=== PATIENT | male | born 1995 | race Caucasian/White ===

== ENCOUNTER 2017-03-17 06:46 | Emergency (ER) | payer OTHER ==
[2017-03-17] MEDS ORDERED: SODIUM CHLORIDE 0.9% 1,000 ML IV STA ×2 (06:57)
[2017-03-17] MEDS ORDERED: ONDANSETRON 4 MG/2 ML VIAL IVP STA (06:57)
[2017-03-17] MEDS ORDERED: KETOROLAC 30 MG/ML 1 ML VIAL IVP STA (07:03)
--- NOTE | 2017-03-17 07:10 | ED ---
General Adult HPI - General Chief complaint: Abdominal Pain Stated complaint: Vomiting Time Seen by Provider: 03/17/17 06:53 Source: patient, RN notes reviewed, old records reviewed Mode of arrival: wheelchair Limitations: no limitations - History of Present Illness Initial comments: 21-year-old male presents with right lower abdominal pain and right flank pain. Patient does also admit to having pain in his right testicle. Patient states this woke him from sleep. Pain is severe, constant in nature. He had 2 episodes of vomiting. Patient reports a bowel movement which was normal. No diarrhea. Denies fever or chills. - Related Data Previous Rx's Medication Instructions Recorded HYDROcodone/APAP 5-325MG [[place] 1 tab PO Q6HR PRN #12 tab 03/17/17 5-325] Ibuprofen [Motrin] 600 mg PO Q8HR PRN #24 tab 03/17/17 Ondansetron Odt [Zofran Odt] 4 mg PO Q8HR PRN #10 tab 03/17/17 Tamsulosin HCl [Flomax] 0.4 mg PO DAILY #14 cap 03/17/17 Allergies Allergy/AdvReac Type Severity Reaction Status Date / Time latex Allergy Swelling Verified 03/17/17 07:29 cats Allergy Itching Uncoded 03/17/17 06:55 Review of Systems ROS Statement: Those systems with pertinent positive or pertinent negative responses have been documented in the HPI. ROS Other: All systems not noted in ROS Statement are negative. Past Medical History Past Medical History: No Reported History Additional Past Medical History / Comment(s): migraines, abdominal pain, constipation, kidney stones History of Any Multi-Drug Resistant Organisms: None Reported Past Surgical History: No Surgical Hx Reported Past Anesthesia/Blood Transfusion Reactions: Motion Sickness Past Psychological History: No Psychological Hx Reported Smoking Status: Former smoker Past Alcohol Use History: Occasional Past Drug Use History: None Reported - Past Family History Mother Family Medical History: No Reported History General Exam Limitations: no limitations General appearance: alert, in distress Head exam: Present: atraumatic, normocephalic Eye exam: Present: normal appearance, PERRL ENT exam: Present: normal exam Neck exam: Present: normal inspection. Absent: tenderness, meningismus Respiratory exam: Present: normal lung sounds bilaterally. Absent: respiratory distress Cardiovascular Exam: Present: regular rate, normal rhythm GI/Abdominal exam: Present: soft, tenderness (Right lower and right upper quadrant.). Absent: distended exam: Present: normal inspection, testicular tenderness, other (Mild tenderness in the right testicle, normal lie, no swelling. ) Extremities exam: Present: normal inspection, normal capillary refill Back exam: Present: CVA tenderness (R) Neurological exam: Present: alert, oriented X3 Psychiatric exam: Present: normal affect, normal mood Skin exam: Present: warm, dry, intact. Absent: cyanosis, diaphoretic Course Vital Signs 03/17/17 06:52 Temperature 97.9 F Pulse Rate 73 Respiratory 20 Rate Blood Pressure 134/82 O2 Sat by Pulse 99 Oximetry - Reevaluation(s) Reevaluation #1: 03/17/17 08:16 On reevaluation, patient is feeling better. Medical Decision Making - Medical Decision Making 21-year-old male presenting with flank pain, abdominal pain radiating into his testicle. Patient does have hematuria with over [address] of the abdomen and pelvis without IV contrast is obtained and shows a 5 mm stone at the right ureteral orifice. After initial dose of pain medication and antiemetic patient is feeling better. No further episodes of vomiting while in the emergency department. Additional laboratory studies including CBC, CMP are unremarkable, normal serum creatinine, no signs of infection. Patient is given a urine strainer in the emergency department. Pain medication and antiemetics as well as Flomax. Patient will follow-up with urology. - Lab Data Result diagrams: 03/17/17 06:56 03/17/17 06:56 Lab Results 03/17/17 03/17/17 03/17/17 Range/Units 06:56 06:56 07:05 WBC 7.2 (3.8-10.6) k/uL RBC 5.24 (4.30-5.90) m/uL Hgb 15.7 (13.0-17.5) gm/dL Hct 45.1 (39.0-53.0) % MCV 86.1 (80.0-100.0) fL MCH 30.0 (25.0-35.0) pg MCHC 34.9 (31.0-37.0) g/dL RDW 12.5 (11.5-15.5) % Plt Count 263 (150-450) k/uL Neutrophils % 53 % Lymphocytes % 38 % Monocytes % 5 % Eosinophils % 1 % Basophils % 0 % Neutrophils # 3.8 (1.3-7.7) k/uL Lymphocytes # 2.8 (1.0-4.8) k/uL Monocytes # 0.4 (0-1.0) k/uL Eosinophils # 0.1 (0-0.7) k/uL Basophils # 0.0 (0-0.2) k/uL Sodium 143 (137-145) mmol/L Potassium 3.9 (3.5-5.1) mmol/L Chloride 106 (98-107) mmol/L Carbon Dioxide 21 L (22-30) mmol/L Anion Gap 16 mmol/L BUN 16 (9-20) mg/dL Creatinine 1.08 (0.66-1.25) mg/dL Est GFR (MDRD) Af Amer >60 (>60 ml/min/1.73 sqM) Est GFR (MDRD) Non-Af >60 (>60 ml/min/1.73 sqM) Glucose 103 H (74-99) mg/dL Plasma Lactic Acid [place] (0.7-2.0) mmol/L Calcium 10.2 (8.4-10.2) mg/dL Total Bilirubin 0.7 (0.2-1.3) mg/dL AST 19 (17-59) U/L ALT 28 (21-72) U/L Alkaline Phosphatase 61 (38-126) U/L Total Protein 8.0 (6.3-8.2) g/dL Albumin 5.3 H (3.5-5.0) g/dL Amylase 42 (30-110) U/L Lipase 68 (23-300) U/L Urine Color Yellow Urine Appearance Cloudy (Clear) Urine pH 5.5 (5.0-8.0) Ur Specific [place] 1.029 (1.001-1.035) Urine Protein 1+ H (Negative) Urine Glucose (UA) Negative (Negative) Urine Ketones Negative (Negative) Urine Blood Large H (Negative) Urine Nitrite Negative (Negative) Urine Bilirubin Negative (Negative) Urine Urobilinogen 2.0 (<2.0) mg/dL Ur Leukocyte Esterase Negative (Negative) Urine RBC 167 H (0-5) /hpf Urine WBC 20 H (0-5) /hpf Urine Mucus Many H (None) /hpf 03/17/17 Range/Units 07:10 WBC (3.8-10.6) k/uL RBC (4.30-5.90) m/uL Hgb (13.0-17.5) gm/dL Hct (39.0-53.0) % MCV (80.0-100.0) fL MCH (25.0-35.0) pg MCHC (31.0-37.0) g/dL RDW (11.5-15.5) % Plt Count (150-450) k/uL Neutrophils % % Lymphocytes % % Monocytes % % Eosinophils % % Basophils % % Neutrophils # (1.3-7.7) k/uL Lymphocytes # (1.0-4.8) k/uL Monocytes # (0-1.0) k/uL Eosinophils # (0-0.7) k/uL Basophils # (0-0.2) k/uL Sodium (137-145) mmol/L Potassium (3.5-5.1) mmol/L Chloride (98-107) mmol/L Carbon Dioxide (22-30) mmol/L Anion Gap mmol/L BUN (9-20) mg/dL Creatinine (0.66-1.25) mg/dL Est GFR (MDRD) Af Amer (>60 ml/min/1.73 sqM) Est GFR (MDRD) Non-Af (>60 ml/min/1.73 sqM) Glucose (74-99) mg/dL Plasma Lactic Acid [place] 2.2 H* (0.7-2.0) mmol/L Calcium (8.4-10.2) mg/dL Total Bilirubin (0.2-1.3) mg/dL AST (17-59) U/L ALT (21-72) U/L Alkaline Phosphatase (38-126) U/L Total Protein (6.3-8.2) g/dL Albumin (3.5-5.0) g/dL Amylase (30-110) U/L Lipase (23-300) U/L Urine Color Urine Appearance (Clear) Urine pH (5.0-8.0) Ur Specific [place] (1.001-1.035) Urine Protein (Negative) Urine Glucose (UA) (Negative) Urine Ketones (Negative) Urine Blood (Negative) Urine Nitrite (Negative) Urine Bilirubin (Negative) Urine Urobilinogen (<2.0) mg/dL Ur Leukocyte Esterase (Negative) Urine RBC (0-5) /hpf Urine WBC (0-5) /hpf Urine Mucus (None) /hpf Disposition Clinical Impression: Renal stone, Hydronephrosis Disposition: HOME SELF-CARE Condition: Good Instructions: Kidney Stones (ED) Additional Instructions: Return to emergency department with worsening symptoms, follow-up with urology in the next several days. Prescriptions: HYDROcodone/APAP 5-325MG [[place] 5-325] 1 tab PO Q6HR PRN #12 tab PRN Reason: Pain Ibuprofen [Motrin] 600 mg PO Q8HR PRN #24 tab PRN Reason: Pain Ondansetron Odt [Zofran Odt] 4 mg PO Q8HR PRN #10 tab PRN Reason: Vomiting Tamsulosin HCl [Flomax] 0.4 mg PO DAILY #14 cap Referrals: None,Stated [Primary Care Provider] - 1-2 days Jerry Ingram MD [STAFF PHYSICIAN] - 1-2 days
[2017-03-17 07:26] LABS: Appearance,Urine Cloudy (Clear); Bilirubin,Urine Negative (Negative); Glucose,Urine (UA) Negative (Negative); Ketones,Urine Negative (Negative); Leukocyte Esterase,Urine Negative (Negative); Mucus,Urine Many /hpf; Nitrite,Urine Negative (Negative); PH, Urine 5.5 (5.0-8.0); Particle Count 14612; Protein,Urine 1+ (Negative); RBC,Urine 167 /hpf (0-5); Specific Gravity,Urine 1.029 (1.001-1.035); UA Billing (MACRO vs. MICRO) MICRO; WBC,Urine 20 /hpf (0-5)
[2017-03-17 07:31] LABS: ALT 28 U/L (21-72); AST 19 U/L (17-59); Alkaline Phosphatase 61 U/L (38-126); Amylase 42 U/L (30-110); Anion Gap 16 mmol/L; Blood Urea Nitrogen 16 mg/dL (9-20); Calcium 10.2 mg/dL (8.4-10.2); Carbon Dioxide 21 mmol/L (22-30); Chloride 106 mmol/L (98-107); Glucose 103 mg/dL (74-99); Non-African American GFR(MDRD) >60 (>60 ml/min/1.73 sqM); Potassium 3.9 mmol/L (3.5-5.1); Sodium 143 mmol/L (137-145); Total Bilirubin 0.7 mg/dL (0.2-1.3)
[2017-03-17 07:42] LABS: Basophils % (A) 0 %; Eosinophils # (A) 0.1 k/uL (0-0.7); Eosinophils % (A) 1 %; HCT 45.1 % (39.0-53.0); HDW 2.66; HGB 15.7 gm/dL (13.0-17.5); Luc # (Auto) 0.19; Luc % (Auto) 3; Lymphocytes # (A) 2.8 k/uL (1.0-4.8); Lymphocytes % (A) 38 %; MCHC 34.9 g/dL (31.0-37.0); MCV 86.1 fL (80.0-100.0); Mean Platelet Volume 7.6; Monocytes # (A) 0.4 k/uL (0-1.0); Monocytes % (A) 5 %; Neutrophils # (A) 3.8 k/uL (1.3-7.7); Neutrophils % (A) 53 %; RBC 5.24 m/uL (4.30-5.90); RDW 12.5 % (11.5-15.5); WBC 7.2 k/uL (3.8-10.6); WBC (Perox) 7.17
--- NOTE | 2017-03-17 07:57 | CT ---
EXAMINATION TYPE: CT abdomen pelvis wo con DATE OF EXAM: 03/17/2017 COMPARISON: 07/24/2015 HISTORY: 21-year-old male right lower quadrant and Rt flank pain CT DLP: 835 mGycm. Automated exposure control for dose reduction was used. TECHNIQUE: Contiguous axial scanning of the abdomen and pelvis without IV contrast. Coronal and sagit adelita reconstructions performed. FINDINGS: Heart is normal size without pericardial effusion. Nonspecific air cyst redemonstrated posterior left lower lobe with some adjacent strandy scarring. No pleural effusion. Noncontrast appearance of the liver, gallbladder, adrenal glands,, spleen, and pancreas show no gross abnormality. There is a nonobstructive 2 mm calculus at the mid to lower pole right kidney but with a mild to mode rate hydronephrosis and mild hydroureter and a 5 mm obstructive calculus at the right ureteral orific e. Punctate 1 mm nonobstructive calculus upper pole left kidney. No dilated small bowel, free fluid, or free air. Scattered nonenlarged mesenteric lymph nodes are dem onstrated. Normal appendix. Mild overall stool burden. No pericolonic inflammatory change. Some nonspecific subm ucosal fat deposition along the descending colon can be seen in setting of obesity or chronic inflamm ation. Bladder is nondistended. No abnormal fluid collection in the pelvis or pelvic lymphadenopathy. Bones: No osseous destructive process. Some disc bulging noted at L5-S1. IMPRESSION: 1. A 5 mm calculus at the right ureteral orifice causing mild to moderate obstructive uropathy. 2. Punctate 1 to 2 mm nonobstructive calculi, one in each kidney. 3. 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
[2017-03-17] MEDS ORDERED: MORPHINE SULFATE 2 MG/ML SYRINGE IVP STA (08:06)
[2017-03-17] MEDS ORDERED: SODIUM CHLORIDE 0.9% 1,000 ML IV ONE (08:07)
[2017-03-17 09:11] VITALS: BP 112/60; PULSE 58; RESP 17; TEMP 97.1
== END 2017-03-17 09:10 | disposition home or self-care (01) ==
LOC: EC 06:46
DX: N13.2 Hydronephrosis with renal and ureteral calculous obstruction (principal); Z87.891 Personal history of nicotine dependence; Z91.040 Latex allergy status; Z91.048 Other nonmedicinal substance allergy status
CPT/HCPCS: 96375 ×3; 96361 ×2; 96374 ×2; 99285 ×2; 36415; 80053; 82150; 83605; 83690; 85025; 81001; 74176; J2405; J1885; J2270

== ENCOUNTER 2017-06-13 15:06 | Emergency (ER) | payer OTHER ==
[2017-06-13] MEDS ORDERED: SODIUM CHLORIDE 0.9% 500 ML IV STA (15:36)
[2017-06-13] MEDS ORDERED: SODIUM CHLORIDE 0.9% 1,000 ML IV STA (15:36)
[2017-06-13] MEDS ORDERED: ONDANSETRON 4 MG/2 ML VIAL IVP STA (15:36)
[2017-06-13] MEDS ORDERED: KETOROLAC 30 MG/ML 1 ML VIAL IVP STA (15:36)
--- NOTE | 2017-06-13 15:41 | ED ---
General Adult HPI - General Chief complaint: Abdominal Pain Stated complaint: Abd pain Time Seen by Provider: 06/13/17 15:19 Source: patient, RN notes reviewed, old records reviewed Mode of arrival: ambulatory Limitations: no limitations - History of Present Illness Initial comments: Chief complaint and history of present illness; is a 21-year-old male here for complaint of discomfort in the right side of his abdomen for 3 days. He's had slightly darker urine. Pain comes and goes. She's had normal bowel movements. He does have a history of having had kidney stones in the past. Patient states it feels somewhat different. Minimal nausea no vomiting. - Related Data Previous Rx's Medication Instructions Recorded Hydrocodone/Acetaminophen [[place] 1 each PO Q6HR PRN #10 tab 06/13/17 5-325] Ondansetron Odt [Zofran Odt] 4 mg PO Q8HR PRN #10 tab 06/13/17 Tamsulosin [Flomax] 0.4 mg PO DAILY #14 cap 06/13/17 Allergies Allergy/AdvReac Type Severity Reaction Status Date / Time latex Allergy Swelling Verified 06/13/17 15:57 cats Allergy Itching Uncoded 06/13/17 15:17 Review of Systems ROS Statement: Those systems with pertinent positive or pertinent negative responses have been documented in the HPI. Review of systems: Patient denies any headache or visual acuity changes no chest pain or shortness of breath he does have had right flank area pain range of motion around to the right mid abdomen. Mild nausea but no vomiting. Normal bowel movements. He urine. No neuro deficits. All systems are reviewed. Past medical problems kidney stones, migraines but no longer. No surgeries. No family history of cancer or kidney stones. Patient has ALLERGIES to latex. Denies smoking drinks alcohol occasionally socially. ROS Other: All systems not noted in ROS Statement are negative. Past Medical History Past Medical History: No Reported History Additional Past Medical History / Comment(s): migraines,kidney stones History of Any Multi-Drug Resistant Organisms: None Reported Past Surgical History: No Surgical Hx Reported Past Anesthesia/Blood Transfusion Reactions: Motion Sickness Past Psychological History: No Psychological Hx Reported Smoking Status: Former smoker Past Alcohol Use History: Occasional Past Drug Use History: None Reported - Past Family History Mother Family Medical History: No Reported History General Exam - General Exam Comments Initial Comments: General: The patient is awake and alert, here because of discomfort to the right side of the abdomen for almost 3 days. Vital signs shows temperature 98.1 pulse 72 respiratory rate 18 pulse ox 90% room air blood pressure 123/56. Eye: Pupils are equal, round and reactive to light, extra-ocular movements are intact ; there is normal conjunctiva bilaterally. No signs of icterus. Ears, nose, mouth and throat: There are moist mucous membranes and no oral lesions. Neck: The neck is supple, there is no tenderness on no anterior cervical lymphadenopathy, thyroid not enlarged. Cardiovascular: There is a regular rate and rhythm. No murmur, rub or gallop is appreciated. Respiratory: Lungs are clear to auscultation, respirations are non-labored, breath sounds are equal. No wheezes, stridor, rales, or rhonchi. Gastrointestinal: Patient has voluntary guarding on the right half of the abdomen. Also mild right flank pain. Negative kidney punch Back: A flank discomfort Musculoskeletal: Normal ROM, no tenderness, There is no pedal edema. There is no calf tenderness or swelling. Sensation intact. Neurological: Complaint evening weakness numbness or tingling. Appears grossly normal Skin: Skin is warm and dry and no rashes or lesions are noted. Limitations: no limitations Course Vital Signs 06/13/17 15:15 Temperature 98.1 F Pulse Rate 72 Respiratory 18 Rate Blood Pressure 123/56 O2 Sat by Pulse 98 Oximetry Medical Decision Making - Medical Decision Making Medical decision making; patient's here for stone like complaints of right flank to the right mid abdomen. I'll nausea. Does have a past history of stones. Urine shows 137 reds 4 whites. Culture pending. Patient's white count is 4.2 hemoglobin 13 hematocrit 38.9. Potassium 4.2 with a BUN 17 creatinine 0.9 and GFR greater than 60. The patient's x-ray of the abdomen was done and reviewed radiologist and his final impression is nonobstructive bowel gas pattern. As read by Dr. Barnhart. Review of previous CAT scan report mentioned pre-existing stones within both kidneys. Clinically the patient presents with renal colic and probable renal stone. The plant this size for the patient be treated for probable kidney stone pain with increase fluids, antinausea medication pain medication. Advised follow-up with family physician and urologist or return emergency room as needed. - Lab Data Result diagrams: 06/13/17 16:10 06/13/17 16:10 Lab Results 06/13/17 06/13/17 06/13/17 Range/Units 16:10 16:10 16:10 WBC 4.2 (3.8-10.6) k/uL RBC 4.52 (4.30-5.90) m/uL Hgb 13.3 (13.0-17.5) gm/dL Hct 38.9 L (39.0-53.0) % MCV 86.3 (80.0-100.0) fL MCH 29.5 (25.0-35.0) pg MCHC 34.3 (31.0-37.0) g/dL RDW 12.5 (11.5-15.5) % Plt Count 217 (150-450) k/uL Neutrophils % 61 % Lymphocytes % 32 % Monocytes % 5 % Eosinophils % 0 % Basophils % 0 % Neutrophils # 2.6 (1.3-7.7) k/uL Lymphocytes # 1.4 (1.0-4.8) k/uL Monocytes # 0.2 (0-1.0) k/uL Eosinophils # 0.0 (0-0.7) k/uL Basophils # 0.0 (0-0.2) k/uL Sodium 142 (137-145) mmol/L Potassium 4.2 (3.5-5.1) mmol/L Chloride 105 (98-107) mmol/L Carbon Dioxide 25 (22-30) mmol/L Anion Gap 12 mmol/L BUN 17 (9-20) mg/dL Creatinine 0.90 (0.66-1.25) mg/dL Est GFR (MDRD) Af Amer >60 (>60 ml/min/1.73 sqM) Est GFR (MDRD) Non-Af >60 (>60 ml/min/1.73 sqM) Glucose 74 (74-99) mg/dL Plasma Lactic Acid [place] 0.6 L (0.7-2.0) mmol/L Calcium 9.8 (8.4-10.2) mg/dL Total Bilirubin 0.8 (0.2-1.3) mg/dL AST 20 (17-59) U/L ALT 30 (21-72) U/L Alkaline Phosphatase 58 (38-126) U/L Total Protein 6.8 (6.3-8.2) g/dL Albumin 4.5 (3.5-5.0) g/dL Amylase 30 (30-110) U/L Lipase 40 (23-300) U/L Urine Color Urine Appearance (Clear) Urine pH (5.0-8.0) Ur Specific [place] (1.001-1.035) Urine Protein (Negative) Urine Glucose (UA) (Negative) Urine Ketones (Negative) Urine Blood (Negative) Urine Nitrite (Negative) Urine Bilirubin (Negative) Urine Urobilinogen (<2.0) mg/dL Ur Leukocyte Esterase (Negative) Urine RBC (0-5) /hpf Urine WBC (0-5) /hpf Urine Mucus (None) /hpf 06/13/17 Range/Units 16:10 WBC (3.8-10.6) k/uL RBC (4.30-5.90) m/uL Hgb (13.0-17.5) gm/dL Hct (39.0-53.0) % MCV (80.0-100.0) fL MCH (25.0-35.0) pg MCHC (31.0-37.0) g/dL RDW (11.5-15.5) % Plt Count (150-450) k/uL Neutrophils % % Lymphocytes % % Monocytes % % Eosinophils % % Basophils % % Neutrophils # (1.3-7.7) k/uL Lymphocytes # (1.0-4.8) k/uL Monocytes # (0-1.0) k/uL Eosinophils # (0-0.7) k/uL Basophils # (0-0.2) k/uL Sodium (137-145) mmol/L Potassium (3.5-5.1) mmol/L Chloride (98-107) mmol/L Carbon Dioxide (22-30) mmol/L Anion Gap mmol/L BUN (9-20) mg/dL Creatinine (0.66-1.25) mg/dL Est GFR (MDRD) Af Amer (>60 ml/min/1.73 sqM) Est GFR (MDRD) Non-Af (>60 ml/min/1.73 sqM) Glucose (74-99) mg/dL Plasma Lactic Acid Willie (0.7-2.0) mmol/L Calcium (8.4-10.2) mg/dL Total Bilirubin (0.2-1.3) mg/dL AST (17-59) U/L ALT (21-72) U/L Alkaline Phosphatase (38-126) U/L Total Protein (6.3-8.2) g/dL Albumin (3.5-5.0) g/dL Amylase (30-110) U/L Lipase (23-300) U/L Urine Color Yellow Urine Appearance Clear (Clear) Urine pH 5.5 (5.0-8.0) Ur Specific [place] 1.024 (1.001-1.035) Urine Protein Trace H (Negative) Urine Glucose (UA) Negative (Negative) Urine Ketones 1+ H (Negative) Urine Blood Moderate H (Negative) Urine Nitrite Negative (Negative) Urine Bilirubin Negative (Negative) Urine Urobilinogen 2.0 (<2.0) mg/dL Ur Leukocyte Esterase Negative (Negative) Urine RBC 137 H (0-5) /hpf Urine WBC 4 (0-5) /hpf Urine Mucus Many H (None) /hpf Disposition Clinical Impression: Renal colic on right side, History of renal stone Disposition: HOME SELF-CARE Condition: Fair Instructions: Renal Colic (ED), Kidney Stones (ED), How to Strain Your Urine ( ED), Flank Pain (ED) Additional Instructions: Fairing Worker urine as directed. Increase fluids. Use Flomax, Zofran and ibuprofen as directed. Follow-up with family physician and on-call urologist Dr. Grigsby as needed Prescriptions: Hydrocodone/Acetaminophen [[place] 5-325] 1 each PO Q6HR PRN #10 tab PRN Reason: Pain Ondansetron Odt [Zofran Odt] 4 mg PO Q8HR PRN #10 tab PRN Reason: Nausea Tamsulosin [Flomax] 0.4 mg PO DAILY #14 cap Referrals: None,Stated [Primary Care Provider] - 1-2 days Time of Disposition: 17:38
[2017-06-13 16:27] LABS: Appearance,Urine Clear (Clear); Bilirubin,Urine Negative (Negative); Blood,Urine Moderate (Negative); Color,Urine Yellow; Glucose,Urine (UA) Negative (Negative); Ketones,Urine 1+ (Negative); Leukocyte Esterase,Urine Negative (Negative); Mucus,Urine Many /hpf; Nitrite,Urine Negative (Negative); PH, Urine 5.5 (5.0-8.0); Protein,Urine Trace (Negative); RBC,Urine 137 /hpf (0-5); Specific Gravity,Urine 1.024 (1.001-1.035); WBC,Urine 4 /hpf (0-5)
[2017-06-13 16:33] LABS: ALT 30 U/L (21-72); AST 20 U/L (17-59); Albumin 4.5 g/dL (3.5-5.0); Alkaline Phosphatase 58 U/L (38-126); Amylase 30 U/L (30-110); Anion Gap 12 mmol/L; Blood Urea Nitrogen 17 mg/dL (9-20); Calcium 9.8 mg/dL (8.4-10.2); Carbon Dioxide 25 mmol/L (22-30); Chloride 105 mmol/L (98-107); Glucose 74 mg/dL (74-99); Lipase 40 U/L (23-300); Potassium 4.2 mmol/L (3.5-5.1); Sodium 142 mmol/L (137-145); Total Bilirubin 0.8 mg/dL (0.2-1.3); Total Protein 6.8 g/dL (6.3-8.2)
[2017-06-13 17:01] LABS: Basophils % (A) 0 %; Eosinophils % (A) 0 %; HCT 38.9 % (39.0-53.0); HGB 13.3 gm/dL (13.0-17.5); Lymphocytes # (A) 1.4 k/uL (1.0-4.8); Lymphocytes % (A) 32 %; MCH 29.5 pg (25.0-35.0); MCHC 34.3 g/dL (31.0-37.0); MCV 86.3 fL (80.0-100.0); Mean Platelet Volume 7.6; Monocytes # (A) 0.2 k/uL (0-1.0); Monocytes % (A) 5 %; Neutrophils # (A) 2.6 k/uL (1.3-7.7); Neutrophils % (A) 61 %; Platelet Count 217 k/uL (150-450); RBC 4.52 m/uL (4.30-5.90); RDW 12.5 % (11.5-15.5); WBC 4.2 k/uL (3.8-10.6)
--- NOTE | 2017-06-13 17:10 | XR ---
2 view abdomen HISTORY: Abdomen pain, nausea vomiting and diarrhea 2 views of the abdomen on 3 images correlated to prior abdomen 07/21/2015 No interval change is evident. IMPRESSION: Nonobstructive bowel gas pattern.
[2017-06-13 18:09] VITALS: BP 112/58; PULSE 59; RESP 12; TEMP 97.3
== END 2017-06-13 18:33 | disposition home or self-care (01) ==
LOC: EC 15:06
DX: N23 Unspecified renal colic (principal); Z87.442 Personal history of urinary calculi; Z87.891 Personal history of nicotine dependence; Z91.040 Latex allergy status; Z91.048 Other nonmedicinal substance allergy status
CPT/HCPCS: 36415; 80053; 82150; 83605; 83690; 85025; 81001; 87086; 74019; 99284; 96374; 96375; 96361 ×2; J2405; J1885

== ENCOUNTER 2017-07-04 19:04 | Emergency (ER) | payer OTHER ==
[2017-07-04 19:50] VITALS: BP 127/67; PULSE 77; RESP 16; TEMP 98.9
--- NOTE | 2017-07-04 21:32 | ED ---
General Adult HPI - General Chief complaint: Upper Respiratory Infection Stated complaint: SORE THROAT AND COUGHING Time Seen by Provider: 07/04/17 20:59 Source: patient, RN notes reviewed Mode of arrival: ambulatory - History of Present Illness Initial comments: This is a 21-year-old male who presents to the emergency department with chief complaint of sore throat. Patient states that he has had a sore throat for the past 2 days. He states that he has had a couple episodes of vomiting. He denies runny nose, congestion, abdominal pain, diarrhea or constipation. He states he has been drinking plenty of fluids. Denies fever or chills. - Related Data Previous Rx's Medication Instructions Recorded Hydrocodone/Acetaminophen [[place] 1 each PO Q6HR PRN #10 tab 06/13/17 5-325] Ondansetron Odt [Zofran Odt] 4 mg PO Q8HR PRN #10 tab 06/13/17 Tamsulosin [Flomax] 0.4 mg PO DAILY #14 cap 06/13/17 Amoxicillin 875 mg PO DAILY #10 tablet 07/04/17 Allergies Allergy/AdvReac Type Severity Reaction Status Date / Time latex Allergy Swelling Verified 07/04/17 19:50 cats Allergy Itching Uncoded 07/04/17 19:50 Review of Systems ROS Statement: Those systems with pertinent positive or pertinent negative responses have been documented in the HPI. ROS Other: All systems not noted in ROS Statement are negative. Past Medical History Past Medical History: No Reported History Additional Past Medical History / Comment(s): ,kidney stones History of Any Multi-Drug Resistant Organisms: None Reported Past Surgical History: No Surgical Hx Reported Past Anesthesia/Blood Transfusion Reactions: Motion Sickness Past Psychological History: No Psychological Hx Reported Smoking Status: Former smoker Past Alcohol Use History: Occasional Past Drug Use History: None Reported - Past Family History Mother Family Medical History: No Reported History General Exam - General Exam Comments Initial Comments: General: Awake and alert, well-developed; in no apparent distress. Wearing a mask. HEENT: Head atraumatic, normocephalic. Pupils are equal, round and reactive to light. Extraocular movements intact. Oropharynx is very erythematous with exudates noted on right tonsil. Neck: Supple. Normal ROM. Cardiovascular: Regular rate and rhythm. No murmurs, rubs or gallops. Chest symmetrical. Respiratory: Lungs clear to auscultation bilaterally. No wheezes, rales or rhonchi. Normal respiratory effort with no use of accessory muscles. Musculoskeletal: Normal ROM, no tenderness bilateral upper and lower extremities. Ambulating normally. Skin: [place], warm and dry without rashes or lesions. Neurological: Alert and oriented x3. CN II-XII grossly intact. Speech is fluent and answers are appropriate. No focal neuro deficits. Psychiatric: Normal mood and affect. No overt signs of depression or anxiety noted. Course Vital Signs 07/04/17 19:47 Temperature 98.9 F Pulse Rate 77 Respiratory 16 Rate Blood Pressure 127/67 O2 Sat by Pulse 100 Oximetry Medical Decision Making - Medical Decision Making This is a 21-year-old male who presents to the emergency department with chief complaint of sore throat. Patient will be empirically treated for strep throat. He requests a work note for the weekend. Upon presentation, patient's vital signs are stable and he is afebrile. He is in no acute distress and will be discharged home. He is in agreement and voices understanding. All questions were answered. Disposition Clinical Impression: Strep pharyngitis Disposition: HOME SELF-CARE Condition: Good Instructions: Strep Throat (ED) Additional Instructions: Please take medications as prescribed. Please follow up with primary care provider within 1-2 days. Return to emergency department if symptoms should worsen or any concerns arise. Prescriptions: Amoxicillin 875 mg PO DAILY #10 tablet Referrals: None,Stated [Primary Care Provider] - 1-2 days Time of Disposition: 21:31
== END 2017-07-04 21:42 | disposition home or self-care (01) ==
LOC: EC 19:04
DX: J02.0 Streptococcal pharyngitis (principal); R11.10 Vomiting, unspecified; Z87.891 Personal history of nicotine dependence; Z91.040 Latex allergy status; Z91.09 Other allergy status, other than to drugs and biological substances
CPT/HCPCS: 99283

== ENCOUNTER 2017-10-30 15:35 | Emergency (ER) | payer OTHER ==
[2017-10-30 15:46] VITALS: RESP 16
[2017-10-30] MEDS ORDERED: DIPH,PERTUS(ACELL)TETVAC-LF 0.5 ML VIAL IM ONE (16:39)
--- NOTE | 2017-10-30 16:43 | XR ---
EXAMINATION TYPE: XR hand complete LT DATE OF EXAM: 10/30/2017 COMPARISON: NONE HISTORY: Pain and swelling in left middle finger TECHNIQUE: Three-view left hand FINDINGS: Subtle soft tissue swelling within the middle finger left hand is not excluded. Joint spaces are preserved. Osseous structures are intact. No radiopaque foreign bodies are evident. IMPRESSION: 1. There may be some mild soft tissue swelling over the proximal interphalangeal joint space of the left middle finger. 2. No acute osseous abnormality is evident.
--- NOTE | 2017-10-30 17:16 | ED ---
General Adult HPI - General Chief complaint: Skin/Abscess/Foreign Body Stated complaint: poss FB in finger Time Seen by Provider: 10/30/17 15:58 Source: patient, RN notes reviewed Mode of arrival: ambulatory Limitations: no limitations - History of Present Illness Initial comments: 22-year-old male presents to the emergency department for a chief complaint of possible foreign body in finger x 1 week. Patient states he was at work one week ago when he went to change the trash and cut his finger with glass. Patient states there may potentially be glass still in his finger. He states the area over the left 3rd PIP joint has been painful since that time. Patient states it is painful to bend his finger. Patient denies any fevers or chills at home. Patient denies any other injuries or cuts from glass. Patient denies pain in the rest of the finger or hand. Patient has no other complaints at this time including shortness of breath, chest pain, abdominal pain, nausea or vomiting, headache, or visual changes. - Related Data Previous Rx's Medication Instructions Recorded Hydrocodone/Acetaminophen [Everly 1 each PO Q6HR PRN #10 tab 06/13/17 5-325] Ondansetron Odt [Zofran Odt] 4 mg PO Q8HR PRN #10 tab 06/13/17 Tamsulosin [Flomax] 0.4 mg PO DAILY #14 cap 06/13/17 Amoxicillin 875 mg PO DAILY #10 tablet 07/04/17 Ibuprofen [Motrin] 600 mg PO Q8HR PRN #20 tab 10/30/17 Sulfamethox-Tmp 800-160Mg [Bactrim 2 tab PO Q12HR 10 Days #40 tab 10/30/17 DS 800-160 mg] Allergies Allergy/AdvReac Type Severity Reaction Status Date / Time latex Allergy Swelling Verified 10/30/17 15:46 cats Allergy Itching Uncoded 10/30/17 15:46 Review of Systems ROS Statement: Those systems with pertinent positive or pertinent negative responses have been documented in the HPI. ROS Other: All systems not noted in ROS Statement are negative. Past Medical History Past Medical History: No Reported History Additional Past Medical History / Comment(s): ,kidney stones History of Any Multi-Drug Resistant Organisms: None Reported Past Surgical History: No Surgical Hx Reported Past Anesthesia/Blood Transfusion Reactions: Motion Sickness Past Psychological History: No Psychological Hx Reported Smoking Status: Former smoker Past Alcohol Use History: Occasional Past Drug Use History: None Reported - Past Family History Mother Family Medical History: No Reported History General Exam Limitations: no limitations General appearance: alert, in no apparent distress Head exam: Present: atraumatic, normocephalic, normal inspection Eye exam: Present: normal appearance ENT exam: Present: normal exam Neck exam: Present: normal inspection, full ROM. Absent: tenderness, meningismus, lymphadenopathy Respiratory exam: Present: normal lung sounds bilaterally. Absent: respiratory distress, wheezes, rales, rhonchi, stridor Cardiovascular Exam: Present: regular rate, normal rhythm, normal heart sounds. Absent: systolic murmur, diastolic murmur, rubs, gallop, clicks Extremities exam: Present: tenderness (Tenderness over the left third PIP joint. No tenderness in any other area of the hand or finger. No tenderness in the scaphoid area.), normal capillary refill (Refill less than 2 seconds in LUE including left 3rd digit and radial pulse 2+ in the left upper extremity.), joint swelling (patient has mild swelling and mild erythema to area over left 3rd PIP joint along with a small 0.5 cm x 0.5 cm break in the skin), other ( sensation intact in LUE.). Absent: full ROM (Patient has full range of motion of the left third MCP joint. Patient has limited flexion of the left third PIP joint joint. ) Course Vital Signs 10/30/17 15:43 Temperature 98.2 F Pulse Rate 73 Respiratory 16 Rate Blood Pressure 138/73 O2 Sat by Pulse 98 Oximetry Medical Decision Making - Medical Decision Making 22-year-old male presents to the emergency department for a chief complaint of possible foreign body in the left third digit. Patient states he was changing trash at his work when he accidentally lacerated his finger with glass. He states it might still be in there because it is painful. Patient states it is painful to move. On exam left third PIP joint is slightly erythematous. There is a small 0.5 cm x 0.5 cm break in the skin over the PIP joint. Patient has pain flexing the finger and has limited flexion. There is no streaking redness up the finger. There is only mild erythema surrounding the area of the open skin. Slight tenderness to the PIP joint. No spreading redness up or down the finger. No drainage from the wound. X-ray was ordered which showed no acute fractures or foreign bodies. Finger was inspected and no foreign bodies were found superficially. Patient was given tetanus in the ED. Patient will be given Bactrim in order to prevent any infection from progressing or forming. He will follow up with orthopedics in one to 2 days. Patient was educated to watch for spreading redness, streaking redness, drainage, or fever and return if these occur. He can occur if he has any other worsening symptoms as well. Disposition Clinical Impression: Cellulitis, Foreign body Disposition: HOME SELF-CARE Condition: Good Instructions: Soft Tissue Foreign Body (ED), Cellulitis (ED) Additional Instructions: Please monitor for any signs of worsening infection such as spreading redness, streaking redness, drainage or fever from the area. Return if these occur. Otherwise follow-up with orthopedics in one to 2 days. Take Motrin and Tylenol for pain and continue antibiotic as directed. Prescriptions: Ibuprofen [Motrin] 600 mg PO Q8HR PRN #20 tab PRN Reason: Pain Sulfamethox-Tmp 800-160Mg [Bactrim DS 800-160 mg] 2 tab PO Q12HR 10 Days #40 tab Is patient prescribed a controlled substance at d/c from ED?: No Referrals: Hesham Simmons MD [Medical Doctor] - 1-2 days Dusty Jerome MD [STAFF PHYSICIAN] - 1-2 days Time of Disposition: 17:16
[2017-10-30 17:46] VITALS: BP 130/80; PULSE 71; TEMP 98.7
== END 2017-10-30 17:45 | disposition home or self-care (01) ==
LOC: EC 15:35
DX: S61.223A Laceration with foreign body of left middle finger without damage to nail, initial encounter (principal); L03.012 Cellulitis of left finger; Z23 Encounter for immunization; Z87.891 Personal history of nicotine dependence; Z91.040 Latex allergy status; Z91.048 Other nonmedicinal substance allergy status; W25.XXXA Contact with sharp glass, initial encounter; Y92.69 Other specified industrial and construction area as the place of occurrence of the external cause; Y99.0 Civilian activity done for income or pay
CPT/HCPCS: 90471; 90715; 99283

== ENCOUNTER 2017-11-29 16:01 | Emergency (ER) | payer OTHER ==
[2017-11-29 16:06] VITALS: BP 119/66; PULSE 78; RESP 18; TEMP 98.9
--- NOTE | 2017-11-29 16:51 | ED ---
General Adult HPI - General Chief complaint: Skin/Abscess/Foreign Body Stated complaint: Sunburn Time Seen by Provider: 11/29/17 16:15 Source: patient, RN notes reviewed Mode of arrival: ambulatory Limitations: no limitations - History of Present Illness Initial comments: 22-year-old male presents to the emergency department for a chief complaint of sunburn 3 days. Patient states he was working outside when symptoms started. Patient states there were blisters that have since popped. Patient denies any fevers or chills at home. Patient denies any drainage from the area. Patient states it is just across the back of his shoulders. Patient has no other complaints at this time including shortness of breath, chest pain, abdominal pain, nausea or vomiting, headache, or visual changes. - Related Data Previous Rx's Medication Instructions Recorded SILVER sulfADIAZINE CREAM 1 applic TOPICAL DAILY #25 gram 11/29/17 [Silvadene Cream] Allergies Allergy/AdvReac Type Severity Reaction Status Date / Time latex Allergy Swelling Verified 11/29/17 16:06 cats Allergy Itching Uncoded 11/29/17 16:06 Review of Systems ROS Statement: Those systems with pertinent positive or pertinent negative responses have been documented in the HPI. ROS Other: All systems not noted in ROS Statement are negative. Past Medical History Past Medical History: No Reported History Additional Past Medical History / Comment(s): ,kidney stones History of Any Multi-Drug Resistant Organisms: None Reported Past Surgical History: No Surgical Hx Reported Past Anesthesia/Blood Transfusion Reactions: Motion Sickness Past Psychological History: ADD/ADHD Smoking Status: Former smoker Past Alcohol Use History: Occasional Past Drug Use History: None Reported - Past Family History Mother Family Medical History: No Reported History General Exam Limitations: no limitations General appearance: alert, in no apparent distress Head exam: Present: atraumatic, normocephalic, normal inspection Eye exam: Present: normal appearance, PERRL, EOMI. Absent: scleral icterus, conjunctival injection, periorbital swelling ENT exam: Present: normal exam, mucous membranes moist Neck exam: Present: normal inspection, full ROM Respiratory exam: Present: normal lung sounds bilaterally. Absent: respiratory distress, wheezes, rales, rhonchi, stridor Cardiovascular Exam: Present: regular rate, normal rhythm, normal heart sounds. Absent: systolic murmur, diastolic murmur, rubs, gallop, clicks Skin exam: Present: other (Patient has an erythematous scaling burn on the upper shoulders. No vesicles present at this point. No signs of infection or purulent drainage. No cellulitic changes. Negative Nikolsky sign.) Course Vital Signs 11/29/17 16:04 Temperature 98.9 F Pulse Rate 78 Respiratory 18 Rate Blood Pressure 119/66 O2 Sat by Pulse 99 Oximetry Medical Decision Making - Medical Decision Making 22-year-old male presents to the emergency department for a chief complaint of sunburn 3 days. Patient was working outside when he got the sunburn. Patient denies fevers or chills at home. On exam patient has erythematous scaling burn on the posterior shoulders. Burn not noted elsewhere on the body. No vesicles present at this point. No signs of infection. Patient will be treated with Silvadene one to 2 times per day until the burn heals. He was educated to try to stay out of the sun. Silvadene was ordered in the emergency department and patient was given a prescription. He will follow up with primary care in 1-2 days. He was educated on return precautions including those for infection and will come back if he has any worsening symptoms. Disposition Clinical Impression: Burn from the sun Disposition: HOME SELF-CARE Condition: Good Instructions: Sunburn (ED) Additional Instructions: Use Silvadene once or twice per day until burn heals. Try to stay out of the sun as much as possible until burn heals. Return to the emergency department if you have any worsening symptoms or signs of infection. Otherwise follow-up with primary care in 1-2 days. Prescriptions: SILVER sulfADIAZINE CREAM [Silvadene Cream] 1 applic TOPICAL DAILY #25 gram Is patient prescribed a controlled substance at d/c from ED?: No Referrals: Kamaljit Olson MD [STAFF PHYSICIAN] - 1-2 days Time of Disposition: 16:42
== END 2017-11-29 16:58 | disposition home or self-care (01) ==
LOC: EC 16:01
DX: L55.9 Sunburn, unspecified (principal); Z91.040 Latex allergy status; Z91.048 Other nonmedicinal substance allergy status; Z87.891 Personal history of nicotine dependence
CPT/HCPCS: 16000; 99282

== ENCOUNTER 2018-02-22 20:39 | Emergency (ER) | payer OTHER ==
[2018-02-22 20:46] VITALS: BP 135/80; PULSE 69; RESP 16; TEMP 98
[2018-02-22] MEDS ORDERED: ORPHENADRINE 30 MG/ML 2 ML VIAL IM STA (21:05)
[2018-02-22] MEDS ORDERED: KETOROLAC 30 MG/ML 1 ML VIAL IM STA (21:05)
--- NOTE | 2018-02-22 21:07 | ED ---
Back Pain HPI - General Chief Complaint: Back Pain/Injury Stated Complaint: Back Pain Time Seen by Provider: 02/22/18 20:47 Source: patient, EMS Limitations: no limitations - History of Present Illness Initial Comments: 22-year-old male patient presents to emergency department today for complaints of low back pain. Patient states that he woke this morning with increased low back pain that radiates down the left leg. Patient states that the pain radiates down the front of his left leg all the way to his toes. Patient denies any numbness or tingling to the leg. Denies any known injury to the back. 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 Patient denies any history of back pain. Denies any history of intravenous drug use. Denies any fevers or chills. Patient denies loss of bowel or bladder control. Denies saddle anesthesia. Patient denies any recent rash, shortness breath, chest pain, abdominal pain, nausea, vomiting, diarrhea, constipation, dizziness, weakness, hematuria, dysuria, urinary urgency, urinary frequency, headache, visual changes, or any other complaints. - Related Data Previous Rx's Medication Instructions Recorded Cyclobenzaprine [Flexeril] 10 mg PO TID #15 tab 02/22/18 Ibuprofen [Motrin] 600 mg PO Q8HR PRN #30 tab 02/22/18 Allergies Allergy/AdvReac Type Severity Reaction Status Date / Time latex Allergy Swelling Verified 02/22/18 20:45 cats Allergy Itching Uncoded 02/22/18 20:45 Review of Systems ROS Statement: Those systems with pertinent positive or pertinent negative responses have been documented in the HPI. ROS Other: All systems not noted in ROS Statement are negative. Past Medical History Past Medical History: No Reported History Additional Past Medical History / Comment(s): ,kidney stones History of Any Multi-Drug Resistant Organisms: None Reported Past Surgical History: No Surgical Hx Reported Past Anesthesia/Blood Transfusion Reactions: Motion Sickness Past Psychological History: ADD/ADHD Smoking Status: Former smoker Past Alcohol Use History: Occasional Past Drug Use History: None Reported - Past Family History Mother Family Medical History: No Reported History General Exam Limitations: no limitations General appearance: alert, in no apparent distress, other (This is a well- developed, well-nourished adult male patient in no acute distress. Vital signs upon presentation are temperature 98.0F, pulse 69, respirations 16, blood pressure 135/80, pulse ox 99% on room air.) Eye exam: Present: normal appearance, PERRL, EOMI. Absent: scleral icterus, conjunctival injection, periorbital swelling ENT exam: Present: normal exam, normal oropharynx, mucous membranes moist Respiratory exam: Present: normal lung sounds bilaterally. Absent: respiratory distress, wheezes, rales, rhonchi, stridor Cardiovascular Exam: Present: regular rate, normal rhythm, normal heart sounds. Absent: systolic murmur, diastolic murmur, rubs, gallop, clicks GI/Abdominal exam: Present: soft, normal bowel sounds. Absent: distended, tenderness, guarding, rebound, rigid Extremities exam: Present: normal inspection, full ROM, normal capillary refill , other (Skin to the lower trauma is is pink, warm, and dry. Cap refills less than 3 seconds. Post tibial pulses are 2+ and equal bilaterally.). Absent: tenderness, pedal edema, joint swelling, calf tenderness Back exam: Present: normal inspection. Absent: vertebral tenderness Neurological exam: Present: alert, oriented X3, CN II-XII intact, other ( Strength in all 4 extremities is 5/5.) Psychiatric exam: Present: normal affect, normal mood Skin exam: Present: warm, dry, intact, normal color. Absent: rash Course Vital Signs 02/22/18 20:43 Temperature 98 F Pulse Rate 69 Respiratory 16 Rate Blood Pressure 135/80 O2 Sat by Pulse 99 Oximetry Medical Decision Making - Medical Decision Making 22-year-old male patient presents to the emergency department today for evaluation of increased low back pain with radiation down the left leg. Physical examination is relatively unremarkable. Patient is neurologically intact. Patient has had no injury to the back therefore x-rays were not felt to be necessary. Patient symptoms are consistent with mechanical back pain. He 'll be given an injection of Toradol and Norflex here in the department. Given a prescription for ibuprofen and Flexeril at home. He is instructed to apply warm moist heat to the low back. He is instructed to perform gentle range of motion exercises. He is instructed to follow-up with his primary care physician for recheck in 1-2 days. He does not have a primary care physician listed so we did refer him to Dr. Gomez. Return parameters were discussed in detail. He verbalizes understanding and agrees this plan. Disposition Clinical Impression: Lumbar radiculopathy, Acute low back pain Disposition: HOME SELF-CARE Condition: Good Instructions: Acute Low Back Pain (ED), Lumbar Radiculopathy (ED) Additional Instructions: Apply warm moist heat to the low back. Perform gentle stretching exercises. Take medications as directed. Follow-up with her primary care physician for recheck in 1-2 days. Return here immediately for any new, worsening, or concerning symptoms. Prescriptions: Cyclobenzaprine [Flexeril] 10 mg PO TID #15 tab Ibuprofen [Motrin] 600 mg PO Q8HR PRN #30 tab PRN Reason: Pain Is patient prescribed a controlled substance at d/c from ED?: No Referrals: Sara Gomez MD [STAFF PHYSICIAN] - 1-2 days Time of Disposition: 21:07
== END 2018-02-22 21:16 | disposition home or self-care (01) ==
LOC: EC 20:39
DX: M54.16 Radiculopathy, lumbar region (principal); Z91.040 Latex allergy status; Z91.09 Other allergy status, other than to drugs and biological substances; Z87.891 Personal history of nicotine dependence; Z87.442 Personal history of urinary calculi
CPT/HCPCS: 99283; 96372 ×2; J2360; J1885

== ENCOUNTER → 2018-04-17 | Outpatient (CLI) | payer OTHER ==
[2018-04-17 14:54] LABS: ALT 104 U/L (21-72); AST 60 U/L (17-59); Albumin 4.8 g/dL (3.5-5.0); Alkaline Phosphatase 58 U/L (38-126); Amylase 48 U/L (30-110); Anion Gap 9 mmol/L; Bilirubin, Delta 0.2 mg/dL (0.0-0.2); Bilirubin,Unconjugated 0.4 mg/dL (0.0-1.1); Blood Urea Nitrogen 13 mg/dL (9-20); Carbon Dioxide 29 mmol/L (22-30); Chloride 103 mmol/L (98-107); Cholesterol 234 mg/dL (<200); HDL Cholesterol 43 mg/dL (40-60); LDL Cholesterol,Calculated 173 mg/dL (0-99); Lipase 42 U/L (23-300); Potassium 4.8 mmol/L (3.5-5.1); Sodium 141 mmol/L (137-145); Total Bilirubin 0.6 mg/dL (0.2-1.3); Total Protein 7.8 g/dL (6.3-8.2); Triglycerides 90 mg/dL (<150)
--- NOTE | 2018-04-17 15:35 | CT ---
EXAMINATION TYPE: CT ChestAbdPelvis wo con DATE OF EXAM: 04/17/2018 COMPARISON: None HISTORY: Chest and abdominal pain. CT DLP: 742.6mGycm Unenhanced CT of the Chest, Abdomen and Pelvis Unenhanced CT of the chest ,abdomen and pelvis is performed. The lack of intravenous contrast limits evaluation of the solid and hollow viscera. Oral contrast: Yes CT Chest: LUNGS: The lungs are clear and free of infiltrate or atelectasis. No pulmonary nodule or mass is det ected. Emphysematous change left lower lobe with linear postinflammatory change. No pleural effusion or CT evidence of interstitial lung disease. MEDIASTINUM: Thoracic aorta is of normal caliber. The heart is not enlarged. No evidence for media stinal mass or adenopathy. HILAR STRUCTURES: No evidence for mass. No hilar adenopathy is appreciated. OTHER: No significant abnormality. CONTRAST CT ABDOMEN AND PELVIS: LIVER/GB: No calcified gallstones. No space occupying hepatic lesion. Biliary tree is of normal ca liber. PANCREAS: No inflammation. No distinct mass. SPLEEN: No splenic enlargement. No lesion seen. ADRENALS: No nodule. No thickening. KIDNEYS/BLADDER: No hydronephrosis. No nephrolithiasis. No disctinct renal mass. BOWEL: Normal appendix. Normal bowel caliber. No inflammation. GENITAL ORGANS: No gross abnormality. LYMPH NODES: No greater than 1cm abdominal or pelvic lymph nodes areappreciated. AORTA: No significant abnormality. OSSEOUS STRUCTURES: No significant abnormality is seen. OTHER: No significant additional abnormality is seen. IMPRESSION: 1. No acute process seen to account for the patient's symptoms.
== END ==
LOC: RADCTMAIN 13:16
PROVIDERS: ATTEND Family Medicine
DX: R10.9 Unspecified abdominal pain (principal); R07.9 Chest pain, unspecified
CPT/HCPCS: 36415; 71250; 74176; 80051; 80061; 80076; 82150; 82565; 83690; 84520

== ENCOUNTER → 2018-05-22 | Outpatient (CLI) | payer OTHER ==
--- NOTE | 2018-05-25 11:36 | NM ---
EXAMINATION TYPE: NM hepatobiliary w EF DATE OF EXAM: 05/22/2018 COMPARISON: CT 04/17/2018 HISTORY: 22-year-old male epigastric pain TECHNIQUE: After the intravenous administration of 5 mCi Tc 99m Mebrofenin hepatobiliary scintigraphy is performed. Immediate images post injection. FINDINGS: There is satisfactory initial accumulation of tracer by the liver. The small bowel activity is noted within 10 minutes. The gallbladder is nonvisualized on the initial 60 minutes. Two-hour delayed show s the gallbladder filling. At 2 hours, 8 ounces of oral ensure plus is given to mimic CCK . The techn ologist reports stomach "grumbling" after intravenous administration. Gallbladder ejection fraction i s calculated at 77 %, in the normal range. IMPRESSION: Gallbladder filling was slightly delayed but ejection fraction is normal. No scintigraphic evidence f or acute/chronic cholecystitis or biliary dyskinesia.
== END | disposition home or self-care (01) ==
LOC: RADNMMAIN 05-05 11:00
PROVIDERS: ATTEND Family Medicine
DX: R10.84 Generalized abdominal pain (principal)
CPT/HCPCS: 78226; A9537

== ENCOUNTER 2018-09-04 22:17 | Emergency (ER) | payer OTHER ==
[2018-09-04 23:01] VITALS: BP 135/89; PULSE 76; RESP 20; TEMP 98.6
[2018-09-04] MEDS ORDERED: IBUPROFEN 800 MG TAB PO STA (23:07)
[2018-09-04] MEDS ORDERED: AMOXIC-POT CLAV 875-125MG 1 EACH TAB PO STA (23:07)
[2018-09-04] MEDS ORDERED: ACETAMINOPHEN TAB 500 MG TAB PO STA (23:07)
[2018-09-04] MEDS ORDERED: DEXAMETHASONE SOD PHOSPHATE 10 MG/ML 1 ML VIAL IM STA (23:07)
--- NOTE | 2018-09-04 23:14 | ED ---
ENT HPI - General Chief complaint: ENT Stated complaint: Sore throat Time Seen by Provider: 09/04/18 23:04 Source: patient, RN notes reviewed, old records reviewed Mode of arrival: ambulatory Limitations: no limitations - History of Present Illness Initial comments: This is a 23-year-old male the ER for sore throat. Source of fever 4 days. Girlfriend of similar complaints earlier. Patient denies current fever fever, no difficulty with swallowing. No neck pain. Her symptoms. Patient's been taking amoxicillin from his girlfriend at home but no other modifying factors for symptoms MD complaint: sore throat, difficulty swallowing (Painful) -: days(s) (5) Location: throat Severity: moderate Severity scale (1-10): 5 Quality: aching Consistency: constant Improves with: none Worsens with: swallowing Context- Ear: recent illness Associated Symptoms: fever, pain with swallowing - Related Data Home Medications Medication Instructions Recorded Confirmed No Known Home Medications 09/04/18 09/04/18 Allergies Allergy/AdvReac Type Severity Reaction Status Date / Time latex Allergy Swelling Verified 09/04/18 23:19 cats Allergy Itching Uncoded 04/09/18 21:09 Review of Systems ROS Statement: Those systems with pertinent positive or pertinent negative responses have been documented in the HPI. ROS Other: All systems not noted in ROS Statement are negative. Past Medical History Past Medical History: No Reported History Additional Past Medical History / Comment(s): ,kidney stones History of Any Multi-Drug Resistant Organisms: None Reported Past Surgical History: No Surgical Hx Reported Past Anesthesia/Blood Transfusion Reactions: Motion Sickness Past Psychological History: ADD/ADHD Smoking Status: Former smoker Past Alcohol Use History: Occasional Past Drug Use History: None Reported - Past Family History Mother Family Medical History: No Reported History General Exam Limitations: no limitations General appearance: alert, in no apparent distress Head exam: Present: atraumatic, normocephalic, normal inspection Eye exam: Present: normal appearance, PERRL, EOMI. Absent: scleral icterus, conjunctival injection, periorbital swelling ENT exam: Present: normal exam, mucous membranes moist. Absent: normal oropharynx (Bilateral tonsillar erythema and edema with exudate) Neck exam: Present: normal inspection. Absent: tenderness, meningismus, lymphadenopathy Respiratory exam: Present: normal lung sounds bilaterally. Absent: respiratory distress, wheezes, rales, rhonchi, stridor Cardiovascular Exam: Present: regular rate, normal rhythm, normal heart sounds. Absent: systolic murmur, diastolic murmur, rubs, gallop, clicks GI/Abdominal exam: Present: soft, normal bowel sounds. Absent: distended, tenderness, guarding, rebound, rigid Extremities exam: Present: normal inspection, full ROM, normal capillary refill. Absent: tenderness, pedal edema, joint swelling, calf tenderness Back exam: Present: normal inspection Neurological exam: Present: alert, oriented X3, CN II-XII intact Psychiatric exam: Present: normal affect, normal mood Skin exam: Present: warm, dry, intact, normal color. Absent: rash Course Vital Signs 09/04/18 22:57 Temperature 98.6 F Pulse Rate 76 Respiratory 20 Rate Blood Pressure 135/89 O2 Sat by Pulse 98 Oximetry - Reevaluation(s) Reevaluation #1: 09/04/18 23:37 Medical record reviewed Reevaluation #2: 09/04/18 23:37 Patient's in no acute distress feels improved Medical Decision Making - Medical Decision Making 20 female the ER for evaluation x-ray soft tissue neck negative. Patient will place on antibiotics and can be discharged home, strep throat - Radiology Data Radiology results: report reviewed (X-ray soft tissue neck is negative for acute disease), image reviewed Disposition Clinical Impression: Streptococcal sore throat Disposition: HOME SELF-CARE Condition: Good Instructions (If sedation given, give patient instructions): Strep Throat (ED) Is patient prescribed a controlled substance at d/c from ED?: No Referrals: Jared Turner Jr, [Primary Care Provider] - 1-2 days
--- NOTE | 2018-09-04 23:44 | XR ---
EXAM: XR Soft Tissue Neck CLINICAL HISTORY: ITS.REASON XR Reason: Pain TECHNIQUE: Frontal and lateral views of the soft tissues of the neck. COMPARISON: No relevant prior studies available. FINDINGS: Airway: Unremarkable. No abnormal narrowing. Bones/joints: No acute fracture. No dislocation. Soft tissues: Unremarkable. No abnormal soft tissue prominence. Normal epiglottis. IMPRESSION: Normal neck x-rays.
== END 2018-09-05 00:04 | disposition home or self-care (01) ==
LOC: EC 22:17
DX: J02.0 Streptococcal pharyngitis (principal); Z87.891 Personal history of nicotine dependence; Z91.040 Latex allergy status; Z91.048 Other nonmedicinal substance allergy status
CPT/HCPCS: 70360; 99283; 96372; J1100

== ENCOUNTER 2018-11-03 04:39 | Emergency (ER) | payer OTHER ==
[2018-11-03] MEDS ORDERED: ACETAMINOPHEN TAB 325 MG TAB PO STA ×2 (05:19→05:38)
[2018-11-03] MEDS ORDERED: IBUPROFEN 400 MG TAB PO STA (05:38)
--- NOTE | 2018-11-03 07:14 | ED ---
General Adult HPI - General Chief complaint: Fever Stated complaint: Fever, Dizziness Time Seen by Provider: 11/03/18 05:18 Source: patient, RN notes reviewed Mode of arrival: wheelchair Limitations: no limitations - History of Present Illness Initial comments: Patient is a pleasant 23-year-old male presenting to the emergency department with sore throat and fever. Onset of symptoms was 3 days ago. Patient does have sore throat that hurts more when he swallows. Patient has been having lightheadedness. Patient has just started mild cough today. Patient also has nasal congestion. No difficulty in breathing. Sore throat has been persistent. Patient does have some fatigue and myalgias. - Related Data Previous Rx's Medication Instructions Recorded Amoxic-Pot Clav 875-125Mg 1 tab PO Q12HR #20 tablet 09/04/18 [Augmentin 875-125] Ibuprofen [Motrin] 600 mg PO Q6HR PRN #20 tab 11/03/18 Allergies Allergy/AdvReac Type Severity Reaction Status Date / Time latex Allergy Swelling Verified 11/03/18 04:57 cats Allergy Itching Uncoded 11/03/18 04:57 Review of Systems ROS Statement: Those systems with pertinent positive or pertinent negative responses have been documented in the HPI. ROS Other: All systems not noted in ROS Statement are negative. Constitutional: Reports: fever, chills Eyes: Denies: eye pain ENT: Denies: ear pain Respiratory: Reports: cough. Denies: dyspnea Cardiovascular: Denies: chest pain Endocrine: Reports: fatigue Gastrointestinal: Denies: abdominal pain Genitourinary: Denies: dysuria Musculoskeletal: Denies: back pain Skin: Denies: rash Neurological: Denies: weakness Past Medical History Past Medical History: No Reported History Additional Past Medical History / Comment(s): ,kidney stones History of Any Multi-Drug Resistant Organisms: None Reported Past Surgical History: No Surgical Hx Reported Past Anesthesia/Blood Transfusion Reactions: Motion Sickness Past Psychological History: ADD/ADHD Smoking Status: Former smoker Past Alcohol Use History: Occasional Past Drug Use History: None Reported - Past Family History Mother Family Medical History: No Reported History General Exam Limitations: no limitations General appearance: alert, in no apparent distress Head exam: Present: atraumatic Eye exam: Present: normal appearance, PERRL ENT exam: Present: other (Pharyngeal erythema) Neck exam: Present: normal inspection. Absent: tenderness, lymphadenopathy Respiratory exam: Present: normal lung sounds bilaterally Cardiovascular Exam: Present: regular rate, normal rhythm GI/Abdominal exam: Present: soft. Absent: tenderness Extremities exam: Present: normal inspection. Absent: pedal edema, calf tenderness Neurological exam: Present: alert Psychiatric exam: Present: normal affect, normal mood Skin exam: Present: normal color Course Vital Signs 11/03/18 11/03/18 04:55 06:20 Temperature 100.9 F H 99.7 F H Pulse Rate 98 99 Respiratory 16 17 Rate Blood Pressure 109/63 120/86 O2 Sat by Pulse 98 99 Oximetry Medical Decision Making - Lab Data Lab Results 11/03/18 Range/Units 05:21 Group A Strep Rapid Negative (Negative) Disposition Clinical Impression: Pharyngitis Disposition: HOME SELF-CARE Condition: Stable Instructions (If sedation given, give patient instructions): Fever in Adults (ED), Strep Throat (ED) Additional Instructions: Please follow-up with primary care physician in the next day or 2 for recheck. Return for difficulty breathing, not tolerating oral intake, worsening symptoms or other concerns. [id number] Tylenol or Motrin as needed. Prescriptions: Ibuprofen [Motrin] 600 mg PO Q6HR PRN #20 tab PRN Reason: Pain Is patient prescribed a controlled substance at d/c from ED?: No Referrals: Jared Turner Jr, DO [Primary Care Provider] - 1-2 days Time of Disposition: 07:14
[2018-11-03 07:24] VITALS: BP 123/83; PULSE 84; RESP 16; TEMP 98.5
== END 2018-11-03 07:19 | disposition home or self-care (01) ==
LOC: EC 04:39
DX: J02.9 Acute pharyngitis, unspecified (principal); R42 Dizziness and giddiness; R09.81 Nasal congestion; R53.83 Other fatigue; M79.10 Myalgia, unspecified site; R05 Cough; R50.9 Fever, unspecified; Z87.891 Personal history of nicotine dependence; Z91.040 Latex allergy status; Z91.048 Other nonmedicinal substance allergy status
CPT/HCPCS: 87081; 87430; 99283

== ENCOUNTER 2019-01-18 09:04 | Emergency (ER) | payer OTHER ==
[2019-01-18 09:09] VITALS: RESP 16; TEMP 98.4
--- NOTE | 2019-01-18 09:48 | XR ---
EXAMINATION TYPE: XR chest 2V DATE OF EXAM: 01/18/2019 COMPARISON: 04/09/2018 HISTORY: 23-year-old male with chest pain going down the left arm TECHNIQUE: PA and lateral views FINDINGS: Heart normal size. Aorta and pulmonary vasculature within normal limits. Some strandy atelectasis in the lower lungs. No consolidation or pleural effusion. IMPRESSION: No acute cardiopulmonary process.
[2019-01-18] MEDS ORDERED: KETOROLAC 30 MG/ML 1 ML VIAL IVP STA (09:55)
--- NOTE | 2019-01-18 09:56 | ED ---
General Adult HPI - General Chief complaint: Chest Pain Stated complaint: chest pain Time Seen by Provider: 01/18/19 09:18 Source: patient, RN notes reviewed Mode of arrival: ambulatory Limitations: no limitations - History of Present Illness Initial comments: 23-year-old male presents to the emergency department for a chief complaint of left-sided chest pain 1 hour. 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 Patient states that the pain is worsened when moving the left arm. States it hurts when he presses on the left side of his chest. Denies any back pain or right-sided chest pain. Denies any shortness of breath. Denies cardiac history. Patient has no other complaints at this time including shortness of breath, chest pain, abdominal pain, nausea or vomiting, headache, or visual changes. - Related Data Home Medications Medication Instructions Recorded Confirmed No Known Home Medications 01/18/19 01/18/19 Allergies Allergy/AdvReac Type Severity Reaction Status Date / Time latex Allergy Swelling Verified 01/18/19 09:33 cats Allergy Itching Uncoded 01/18/19 09:09 Review of Systems ROS Statement: Those systems with pertinent positive or pertinent negative responses have been documented in the HPI. ROS Other: All systems not noted in ROS Statement are negative. Past Medical History Past Medical History: No Reported History Additional Past Medical History / Comment(s): ,kidney stones History of Any Multi-Drug Resistant Organisms: None Reported Past Surgical History: No Surgical Hx Reported Past Anesthesia/Blood Transfusion Reactions: Motion Sickness Past Psychological History: ADD/ADHD Smoking Status: Former smoker Past Alcohol Use History: Occasional Past Drug Use History: None Reported - Past Family History Mother Family Medical History: No Reported History General Exam Limitations: no limitations General appearance: alert, in no apparent distress Head exam: Present: atraumatic, normocephalic, normal inspection Eye exam: Present: normal appearance, PERRL, EOMI. Absent: scleral icterus, conjunctival injection, periorbital swelling ENT exam: Present: normal exam, mucous membranes moist Neck exam: Present: normal inspection, full ROM. Absent: tenderness, meningismus Respiratory exam: Present: normal lung sounds bilaterally, chest wall tenderness (Patient has tenderness noted to the left side anterior chest wall.). Absent: respiratory distress, wheezes, rales, rhonchi, stridor Cardiovascular Exam: Present: regular rate, normal rhythm, normal heart sounds. Absent: systolic murmur, diastolic murmur, rubs, gallop, clicks Extremities exam: Present: other (Capillary refill less than 2 seconds, radial pulse 2+ and left upper extremity. Pain worsens in the chest with movement of the left shoulder. No tenderness of the left shoulder.) Course Vital Signs 01/18/19 09:06 Temperature 98.4 F Pulse Rate 77 Respiratory 16 Rate Blood Pressure 117/71 O2 Sat by Pulse 98 Oximetry EKG Findings - EKG Comments: EKG Findings:: EKG shows a normal sinus rhythm with a ventricular rate of 60, LA interval 160, QTC 400 Medical Decision Making - Medical Decision Making 23-year-old male presents for left-sided chest pain 1 hour. Patient states he was lifting a tile onto the ceiling at work when he felt a pull in the left side of his chest. States it hurts more when he moves his left arm. Denies any shoulder pain. On exam patient has reproducible chest pain to palpation of the left anterior chest wall. Neurovascular intact in the left upper extremity. Patient given Toradol which did help with his pain. EKG shows a normal sinus rhythm with a ventricular rate of 60. No ST elevation or depression. Chest x- ray shows no acute cardiopulmonary process. At this time patient likely has a muscle strain of the chest wall. Recommended Motrin and Tylenol and following up with primary care. Recommended returning if he has any worsening symptoms. Patient is in agreement with this plan, all questions answered. Disposition Clinical Impression: Chest wall pain Disposition: HOME SELF-CARE Condition: Good Instructions (If sedation given, give patient instructions): Costochondritis (ED) Additional Instructions: Please take Motrin and Tylenol for pain. Please follow-up with primary care in 1-2 days. Return here to the emergency department if you have any worsening symptoms. Is patient prescribed a controlled substance at d/c from ED?: No Referrals: Jared Turner Jr, DO [Primary Care Provider] - 1-2 days Time of Disposition: 10:22
[2019-01-18 10:27] VITALS: BP 137/80; PULSE 56
== END 2019-01-18 11:04 | disposition home or self-care (01) ==
LOC: EC 09:04
DX: R07.89 Other chest pain (principal); Z91.040 Latex allergy status; Z91.09 Other allergy status, other than to drugs and biological substances; Z87.891 Personal history of nicotine dependence
CPT/HCPCS: 93005; 71046; 99285; 96374; J1885

== ENCOUNTER 2019-03-08 21:09 | Emergency (ER) | payer OTHER ==
[2019-03-08 21:25] VITALS: BP 135/62; PULSE 68; RESP 20; TEMP 98.6
[2019-03-08] MEDS ORDERED: AMOXIC-POT CLAV 875MG STARTER 2 EACH TABLET PO STA (21:49)
--- NOTE | 2019-03-08 21:49 | ED ---
General Adult HPI - General Chief complaint: Dental/Oral Stated complaint: Tooth Pain, Throat Pain Time Seen by Provider: 03/08/19 21:23 Source: patient, RN notes reviewed, old records reviewed Mode of arrival: ambulatory Limitations: no limitations - History of Present Illness Initial comments: 22-year-old male patient proceeded chief complaint of dental pain. Patient also complains of some postnasal drip causing a sore throat. Patient denies any other complaints at this time. Patient is fully vaccinated. Systemic: Pt denies fatigue, fever/chills, rash. Pt denies weakness, night sweats, weight loss. Neuro: Pt denies headache, visual disturbances, syncope or pre-syncope. HEENT: Pt denies ocular discharge or irritation, otalgia, rhinorrhea, pha ryngitis or notable lymphadenopathy. Cardiopulmonary: Pt denies chest pain, SOB, heart palpitations, dyspnea on exertion. Abdominal/GI: Pt denies abdominal pain, n/v/d. : Pt denies dysuria, burning w/ urination, frequency/urgency. Denies new onset urinary or bowel incontinence. MSK: Pt denies myalgia, loss of strength or function in extremities. Neuro: Pt denies new onset weakness, paresthesias. - Related Data Previous Rx's Medication Instructions Recorded Amoxicillin/Potassium Clav 1 each PO Q12HR 7 Days #14 tab 03/08/19 [Augmentin 875-125 Tablet] Allergies Allergy/AdvReac Type Severity Reaction Status Date / Time latex Allergy Swelling Verified 03/08/19 21:25 cats Allergy Itching Uncoded 03/08/19 21:25 Review of Systems ROS Statement: Those systems with pertinent positive or pertinent negative responses have been documented in the HPI. ROS Other: All systems not noted in ROS Statement are negative. Past Medical History Past Medical History: No Reported History Additional Past Medical History / Comment(s): ,kidney stones History of Any Multi-Drug Resistant Organisms: None Reported Past Surgical History: No Surgical Hx Reported Past Anesthesia/Blood Transfusion Reactions: Motion Sickness Past Psychological History: ADD/ADHD Smoking Status: Former smoker Past Alcohol Use History: Occasional Past Drug Use History: None Reported - Past Family History Mother Family Medical History: No Reported History General Exam - General Exam Comments Initial Comments: Constitutional: NAD, AOX3, Pt has pleasant affect. HEENT: NC/AT, trachea midline, neck supple, no lymphadenopathy. Posterior pharynx non erythematous, without exudates. External ears appear normal, without discharge. Mucous membranes moist. Eyes PERRLA, EOM intact. There is no scleral icterus. No pallor noted. Broken 13th tooth noted. Mild amount erythema. No fluctuance or drainage noted. Cardiopulmonary: RRR, no murmurs, rubs or gallops, no JVD noted. Lungs CTAB in anterior and posterior awad. No peripheral edema. Abdominal exam: Abdomen soft and non-distended. Abdomen non-tender to palpation in all 4 quadrants. Bowel sounds active in LLQ. No hepatosplenomegaly. No ecchymosis Neuro: CN II-XII grossly intact. No nuchal rigidity. No raccon eyes, no rodríguez sign, no hemotympanum. No cervical spinal tenderness. MSK: No posterior calf tenderness bilaterally, homans sign negative bilaterally. Posterior tibialis and radial pulse +2 bilaterally. Sensation intact in upper and lower extremities. Full active ROM in upper and lower extremities, 5/5 stregnth. Limitations: no limitations Course Vital Signs 03/08/19 21:20 Temperature 98.6 F Pulse Rate 68 Respiratory 20 Rate Blood Pressure 135/62 O2 Sat by Pulse 100 Oximetry Medical Decision Making - Medical Decision Making 22-year-old male patient proceeded chief complaint of dental pain. Patient also complains of some postnasal drip causing a sore throat. Patient denies any other complaints at this time. Patient is fully vaccinated. Pt VSS, afebrile. Physical exam displayed: Broken 13th tooth noted. Mild amount erythema. No fluctuance or drainage noted. Patient is to Augmentin will be discharged with Augmentin. Patient follow with dentist as soon as possible. Case discussed with Dr. Veliz. Disposition Clinical Impression: Pain, dental Disposition: HOME SELF-CARE Condition: Stable Instructions (If sedation given, give patient instructions): Toothache (ED) Additional Instructions: Patient to adhere to previously discussed treatment plan and will take medication(s) as directed. Patient to follow up with PCP in 1-2 days. Patient to return to ED if symptoms do not improve. Take medication as directed. Follow-up with dentist as soon as possible. Return to ER if condition worsens. Prescriptions: Amoxicillin/Potassium Clav [Augmentin 875-125 Tablet] 1 each PO Q12HR 7 Days #14 tab Is patient prescribed a controlled substance at d/c from ED?: No Referrals: Jared Turner Jr, DO [Primary Care Provider] - 1-2 days
== END 2019-03-08 22:08 | disposition home or self-care (01) ==
LOC: EC 21:09
DX: K08.89 Other specified disorders of teeth and supporting structures (principal); J02.9 Acute pharyngitis, unspecified; S02.5XXA Fracture of tooth (traumatic), initial encounter for closed fracture; Z91.040 Latex allergy status; Z91.09 Other allergy status, other than to drugs and biological substances; Z87.891 Personal history of nicotine dependence; X58.XXXA Exposure to other specified factors, initial encounter
CPT/HCPCS: 99283

== ENCOUNTER 2019-04-19 18:47 | Emergency (ER) | payer OTHER ==
[2019-04-19] MEDS ORDERED: MORPHINE SULFATE 4 MG/ML SYRINGE IV STA ×2 (19:13→20:27)
[2019-04-19] MEDS ORDERED: ONDANSETRON 4 MG/2 ML VIAL IVP STA (19:13)
[2019-04-19] MEDS ORDERED: SODIUM CHLORIDE 0.9% 1,000 ML IV STA (19:13)
[2019-04-19 19:50] LABS: Basophils % (A) 1 %; Eosinophils # (A) 0.1 k/uL (0-0.7); Eosinophils % (A) 2 %; HCT 41.2 % (39.0-53.0); HGB 14.3 gm/dL (13.0-17.5); Lymphocytes # (A) 1.3 k/uL (1.0-4.8); Lymphocytes % (A) 28 %; MCH 30.6 pg (25.0-35.0); MCHC 34.7 g/dL (31.0-37.0); Mean Platelet Volume 7.9; Monocytes # (A) 0.2 k/uL (0-1.0); Monocytes % (A) 5 %; Neutrophils % (A) 64 %; Platelet Count 180 k/uL (150-450); RBC 4.68 m/uL (4.30-5.90); RDW 12.5 % (11.5-15.5); WBC 4.7 k/uL (3.8-10.6)
[2019-04-19 20:00] LABS: ALT 15 U/L (21-72); AST 17 U/L (17-59); African American GFR (CKD) >90 (>60 ml/min/1.73 sqM); Albumin 4.4 g/dL (3.5-5.0); Alkaline Phosphatase 58 U/L (38-126); Anion Gap 9 mmol/L; Blood Urea Nitrogen 16 mg/dL (9-20); Calcium 9.5 mg/dL (8.4-10.2); Carbon Dioxide 23 mmol/L (22-30); Chloride 109 mmol/L (98-107); Glucose 84 mg/dL (74-99); Non-African American GFR(CKD) >90 (>60 ml/min/1.73 sqM); Sodium 141 mmol/L (137-145); Total Bilirubin 0.3 mg/dL (0.2-1.3)
[2019-04-19 20:12] LABS: Appearance,Urine Clear (Clear); Bilirubin,Urine Negative (Negative); Blood,Urine Negative (Negative); Color,Urine Light Yellow; Glucose,Urine (UA) Negative (Negative); Ketones,Urine Negative (Negative); Leukocyte Esterase,Urine Negative (Negative); Nitrite,Urine Negative (Negative); PH, Urine 7.5 (5.0-8.0); Protein,Urine Negative (Negative); Specific Gravity,Urine 1.016 (1.001-1.035)
--- NOTE | 2019-04-19 20:43 | US ---
EXAMINATION TYPE: US abdomen APPY DATE OF EXAM: 04/19/2019 COMPARISON: CT 04/19/2019 CLINICAL HISTORY: RLQ pain 5 days. RLQ pain x 5 days. Nausea, vomiting. APPENDIX The appendix is not seen with ultrasound at this time. Is there inflammatory changes or free fluid present: Multiple hypoechoic areas with hyperechoic cent ers and vascularity at the viola are seen in the RLQ. Largest measures: 2.0 x 1.3 x 0.5 cm. IMPRESSION: Appendix not clearly visualized. Correlate for possible mesenteric adenitis. Symptoms persist conside r CT.
[2019-04-19] MEDS ORDERED: KETOROLAC 30 MG/ML 1 ML VIAL IVP STA (21:02)
[2019-04-19 21:34] VITALS: BP 111/63; PULSE 59; RESP 17; TEMP 97.8
--- NOTE | 2019-04-19 21:39 | ED ---
General Adult HPI - General Chief complaint: Abdominal Pain Stated complaint: Abd Pain Time Seen by Provider: 04/19/19 18:59 Source: patient, EMS, RN notes reviewed, old records reviewed Mode of arrival: EMS Limitations: no limitations - History of Present Illness Initial comments: 23-year-old male patient with no pertinent past history presents ED chief c omplaint of 5 days of right lower quadrant pain. Patient did have an outpatient CAT scan done today approximately 3 PM, which was negative. Patient reports that he has an appointment with a general surgeon tomorrow made by his primary care provider. Reports that pain and nausea caused him to present to the emergency department. Denies any other complaints. Systemic: Pt denies fatigue, fever/chills, rash. Pt denies weakness, night sweats, weight loss. Neuro: Pt denies headache, visual disturbances, syncope or pre-syncope. HEENT: Pt denies ocular discharge or irritation, otalgia, rhinorrhea, pharyngitis or notable lymphadenopathy. Cardiopulmonary: Pt denies chest pain, SOB, heart palpitations, dyspnea on exertion. : Pt denies dysuria, burning w/ urination, frequency/urgency. Denies new onset urinary or bowel incontinence. MSK: Pt denies myalgia, loss of strength or function in extremities. Neuro: Pt denies new onset weakness, paresthesias. - Related Data Previous Rx's Medication Instructions Recorded Amoxicillin/Potassium Clav 1 each PO Q12HR 7 Days #14 tab 03/08/19 [Augmentin 875-125 Tablet] Allergies Allergy/AdvReac Type Severity Reaction Status Date / Time latex Allergy Swelling Verified 03/08/19 21:25 cats Allergy Itching Uncoded 03/08/19 21:25 Review of Systems ROS Statement: Those systems with pertinent positive or pertinent negative responses have been documented in the HPI. ROS Other: All systems not noted in ROS Statement are negative. Past Medical History Past Medical History: No Reported History Additional Past Medical History / Comment(s): ,kidney stones History of Any Multi-Drug Resistant Organisms: None Reported Past Surgical History: No Surgical Hx Reported Past Anesthesia/Blood Transfusion Reactions: Motion Sickness Past Psychological History: ADD/ADHD Smoking Status: Former smoker Past Alcohol Use History: Occasional Past Drug Use History: None Reported - Past Family History Mother Family Medical History: No Reported History General Exam - General Exam Comments Initial Comments: Constitutional: NAD, AOX3, Pt has pleasant affect. HEENT: NC/AT, trachea midline, neck supple, no lymphadenopathy. Posterior pharynx non erythematous, without exudates. External ears appear normal, without discharge. Mucous membranes moist. Eyes PERRLA, EOM intact. There is no scleral icterus. No pallor noted. Cardiopulmonary: RRR, no murmurs, rubs or gallops, no JVD noted. Lungs CTAB in anterior and posterior awad. No peripheral edema. Abdominal exam: Abdomen soft and non-distended. Abdomen tender to palpation in right lower quadrant region. No other areas of abdominal tenderness.. Bowel sounds active in LLQ. No hepatosplenomegaly. No ecchymosis Neuro: CN II-XII grossly intact. No nuchal rigidity. No raccon eyes, no rodríguez sign, no hemotympanum. No cervical spinal tenderness. MSK: No posterior calf tenderness bilaterally, homans sign negative bilaterally. Posterior tibialis and radial pulse +2 bilaterally. Sensation intact in upper and lower extremities. Full active ROM in upper and lower extremities, 5/5 stregnth. Limitations: no limitations Course Vital Signs 04/19/19 04/19/19 18:53 21:32 Temperature 98.2 F 97.8 F Pulse Rate 65 59 L Respiratory 18 17 Rate Blood Pressure 148/81 111/63 O2 Sat by Pulse 98 98 Oximetry Medical Decision Making - Medical Decision Making 23-year-old male patient presents to ED chief complaint of 5 days of right lower quadrant pain. Patient vital signs are stable, afebrile. Physical exam is the right lower quadrant tenderness to palpation. Evaluation outpatient CAT scan displayed no signs acute appendicitis small bowel feces sign seen within the terminal ileum. Possible incompetent ileocecal valve. Laboratory investigations are non-impressive. CRP negative. ESR negative. Ultrasound right lower quadrant did not display appendix, correlate for mesenteric adenitis. She feeling much improved will be discharged with outpatient follow- up with surgeon tomorrow. Case discussed with Dr. Rogers. - Lab Data Result diagrams: 04/19/19 19:20 04/19/19 19:20 Lab Results 04/19/19 04/19/19 04/19/19 Range/Units 19:20 19:20 19:20 WBC 4.7 (3.8-10.6) k/uL RBC 4.68 (4.30-5.90) m/uL Hgb 14.3 (13.0-17.5) gm/dL Hct 41.2 (39.0-53.0) % MCV 88.0 (80.0-100.0) fL MCH 30.6 (25.0-35.0) pg MCHC 34.7 (31.0-37.0) g/dL RDW 12.5 (11.5-15.5) % Plt Count 180 (150-450) k/uL Neutrophils % 64 % Lymphocytes % 28 % Monocytes % 5 % Eosinophils % 2 % Basophils % 1 % Neutrophils # 3.0 (1.3-7.7) k/uL Lymphocytes # 1.3 (1.0-4.8) k/uL Monocytes # 0.2 (0-1.0) k/uL Eosinophils # 0.1 (0-0.7) k/uL Basophils # 0.0 (0-0.2) k/uL ESR (0-15) mm/hr Sodium 141 (137-145) mmol/L Potassium 4.0 (3.5-5.1) mmol/L Chloride 109 H (98-107) mmol/L Carbon Dioxide 23 (22-30) mmol/L Anion Gap 9 mmol/L BUN 16 (9-20) mg/dL Creatinine 0.91 (0.66-1.25) mg/dL Est GFR (CKD-EPI)AfAm >90 (>60 ml/min/1.73 sqM) Est GFR (CKD-EPI)NonAf >90 (>60 ml/min/1.73 sqM) Glucose 84 (74-99) mg/dL Plasma Lactic Acid Willie 0.7 (0.7-2.0) mmol/L Calcium 9.5 (8.4-10.2) mg/dL Total Bilirubin 0.3 (0.2-1.3) mg/dL AST 17 (17-59) U/L ALT 15 L (21-72) U/L Alkaline Phosphatase 58 (38-126) U/L C-Reactive Protein (<10.0) mg/L Total Protein 7.0 (6.3-8.2) g/dL Albumin 4.4 (3.5-5.0) g/dL Lipase 49 (23-300) U/L Urine Color Urine Appearance (Clear) Urine pH (5.0-8.0) Ur Specific [place] (1.001-1.035) Urine Protein (Negative) Urine Glucose (UA) (Negative) Urine Ketones (Negative) Urine Blood (Negative) Urine Nitrite (Negative) Urine Bilirubin (Negative) Urine Urobilinogen (<2.0) mg/dL Ur Leukocyte Esterase (Negative) 04/19/19 04/19/19 04/19/19 Range/Units 19:20 19:20 19:20 WBC (3.8-10.6) k/uL RBC (4.30-5.90) m/uL Hgb (13.0-17.5) gm/dL Hct (39.0-53.0) % MCV (80.0-100.0) fL MCH (25.0-35.0) pg MCHC (31.0-37.0) g/dL RDW (11.5-15.5) % Plt Count (150-450) k/uL Neutrophils % % Lymphocytes % % Monocytes % % Eosinophils % % Basophils % % Neutrophils # (1.3-7.7) k/uL Lymphocytes # (1.0-4.8) k/uL Monocytes # (0-1.0) k/uL Eosinophils # (0-0.7) k/uL Basophils # (0-0.2) k/uL ESR 2 (0-15) mm/hr Sodium (137-145) mmol/L Potassium (3.5-5.1) mmol/L Chloride (98-107) mmol/L Carbon Dioxide (22-30) mmol/L Anion Gap mmol/L BUN (9-20) mg/dL Creatinine (0.66-1.25) mg/dL Est GFR (CKD-EPI)AfAm (>60 ml/min/1.73 sqM) Est GFR (CKD-EPI)NonAf (>60 ml/min/1.73 sqM) Glucose (74-99) mg/dL Plasma Lactic Acid Willie (0.7-2.0) mmol/L Calcium (8.4-10.2) mg/dL Total Bilirubin (0.2-1.3) mg/dL AST (17-59) U/L ALT (21-72) U/L Alkaline Phosphatase (38-126) U/L C-Reactive Protein <5.0 (<10.0) mg/L Total Protein (6.3-8.2) g/dL Albumin (3.5-5.0) g/dL Lipase (23-300) U/L Urine Color Light Yellow Urine Appearance Clear (Clear) Urine pH 7.5 (5.0-8.0) Ur Specific [place] 1.016 (1.001-1.035) Urine Protein Negative (Negative) Urine Glucose (UA) Negative (Negative) Urine Ketones Negative (Negative) Urine Blood Negative (Negative) Urine Nitrite Negative (Negative) Urine Bilirubin Negative (Negative) Urine Urobilinogen 2.0 (<2.0) mg/dL Ur Leukocyte Esterase Negative (Negative) Disposition Clinical Impression: Abdominal pain Disposition: HOME SELF-CARE Condition: Stable Instructions (If sedation given, give patient instructions): Abdominal Pain (ED) Additional Instructions: Follow-up with primary care provider and surgeon as scheduled tomorrow. Return to ER if condition worsens. Is patient prescribed a controlled substance at d/c from ED?: No Referrals: Jared Turner Jr, DO [Primary Care Provider] - 1-2 days
== END 2019-04-19 22:02 | disposition home or self-care (01) ==
LOC: EC 18:47
DX: R10.31 Right lower quadrant pain (principal); Z91.040 Latex allergy status; Z91.048 Other nonmedicinal substance allergy status; Z87.891 Personal history of nicotine dependence
CPT/HCPCS: 36415; 80053; 85652; 83605; 83690; 85025; 86140; 81003; 76705; 96374; 96375 ×2; 96376; 96361; 99285; J2270; J2405; J1885

== ENCOUNTER → 2019-04-19 | Outpatient (CLI) | payer OTHER ==
[2019-04-19 11:58] LABS: Basophils # (A) 0.1 k/uL (0-0.2); Basophils % (A) 2 %; Eosinophils # (A) 0.1 k/uL (0-0.7); Eosinophils % (A) 1 %; HCT 41.8 % (39.0-53.0); HGB 14.3 gm/dL (13.0-17.5); Lymphocytes # (A) 1.2 k/uL (1.0-4.8); Lymphocytes % (A) 27 %; MCH 30.4 pg (25.0-35.0); MCHC 34.3 g/dL (31.0-37.0); MCV 88.6 fL (80.0-100.0); Mean Platelet Volume 7.3; Monocytes # (A) 0.2 k/uL (0-1.0); Monocytes % (A) 5 %; Neutrophils # (A) 2.8 k/uL (1.3-7.7); Neutrophils % (A) 64 %; Platelet Count 185 k/uL (150-450); RBC 4.72 m/uL (4.30-5.90); RDW 12.5 % (11.5-15.5); WBC 4.4 k/uL (3.8-10.6)
[2019-04-19 12:05] LABS: ALT 22 U/L (21-72); AST 16 U/L (17-59); African American GFR (CKD) >90 (>60 ml/min/1.73 sqM); Albumin 4.6 g/dL (3.5-5.0); Alkaline Phosphatase 61 U/L (38-126); Amylase 47 U/L (30-110); Anion Gap 7 mmol/L; Blood Urea Nitrogen 19 mg/dL (9-20); Calcium 9.6 mg/dL (8.4-10.2); Carbon Dioxide 26 mmol/L (22-30); Chloride 109 mmol/L (98-107); Glucose 91 mg/dL (74-99); Potassium 4.9 mmol/L (3.5-5.1); Sodium 142 mmol/L (137-145); Total Bilirubin 0.3 mg/dL (0.2-1.3); Total Protein 7.3 g/dL (6.3-8.2)
--- NOTE | 2019-04-19 13:37 | CT ---
EXAMINATION TYPE: CT abdomen pelvis w con DATE OF EXAM: 04/19/2019 COMPARISON: CT dated 04/17/2018 HISTORY: fever/RLQ pain x [address] DLP: 1297 mGycm Automated exposure control for dose reduction was used. TECHNIQUE: Helical acquisition of images was performed from the lung bases through the pelvis. CONTRAST: Performed with Oral Contrast and with IV Contrast, patient injected with 100 mL of Isovue 300. FINDINGS: LUNG BASES: No significant abnormality is appreciated. LIVER/GB: No significant abnormality is appreciated. PANCREAS: No significant abnormality is seen. SPLEEN: Incidentally noted splenomegaly with the spleen measuring 14.4 cm in craniocaudal dimension. ADRENALS: No nodularity or thickening. KIDNEYS: Kidneys enhance and excrete symmetrically without hydronephrosis. FREE AIR: No free air is visualized. ADENOPATHY: No greater than 1 cm short axis lymph node in the abdomen or pelvis. URINARY BLADDER: No significant abnormality is seen. OSSEOUS STRUCTURES: Subcortical cysts are seen of the posterior acetabulum appearing linear and axia l imaging although appears rounded on coronal imaging (series 3 image 85 and series 7 image 61. BOWEL: The appendix is air-filled and within normal limits of size without periappendiceal fat stran ding. Small bowel feces sign is seen within the terminal ileum. No dilated large or small bowel. IMPRESSION: NO CT EVIDENCE OF ACUTE APPENDICITIS. INCREASED TRANSIT TIME IN THE SMALL BOWEL THERE IS SMALL BOW EL FECES SIGN WITHIN THE TERMINAL ILEUM VERSUS INCOMPETENT ILEOCECAL VALVE. NO EVIDENCE OF BOWEL OBST RUCTION.
== END | disposition home or self-care (01) ==
LOC: RADCTMAIN 11:19
PROVIDERS: ATTEND Nurse Practitioner Family
DX: R10.31 Right lower quadrant pain (principal); R11.2 Nausea with vomiting, unspecified; R50.9 Fever, unspecified
CPT/HCPCS: 80053; 82150; 83690; 85025; 74177; 36415; Q9967

== ENCOUNTER 2019-06-26 17:44 | Emergency (ER) | payer OTHER ==
[2019-06-26 17:49] VITALS: BP 137/83; PULSE 90; RESP 18; TEMP 98.5
[2019-06-26] MEDS ORDERED: IBUPROFEN 600 MG TAB PO STA (18:06)
--- NOTE | 2019-06-26 18:35 | XR ---
EXAMINATION TYPE: XR wrist complete RT DATE OF EXAM: 06/26/2019 COMPARISON: NONE HISTORY: Pain TECHNIQUE: 4 views FINDINGS: Carpal bones are intact. Joint spaces are normal. I see no fracture nor dislocation. Metaca rpals are intact. IMPRESSION: Negative right wrist exam. No fracture seen.
--- NOTE | 2019-06-26 18:52 | ED ---
General Adult HPI - General Chief complaint: Extremity Injury, Upper Stated complaint: Wrist injury Time Seen by Provider: 06/26/19 17:51 Source: patient, RN notes reviewed Mode of arrival: ambulatory Limitations: no limitations - History of Present Illness Initial comments: 23-year-old male presents for right wrist pain. States he was using a drill wh en he had sudden pain in his right wrist. States he had some tingling in his first second and third fingers. States it hurts when he flexes his right wrist. Denies any other injury. Denies weakness of the right hand.Patient has no other complaints at this time including shortness of breath, chest pain, abdominal pain, nausea or vomiting, headache, or visual changes. - Related Data Previous Rx's Medication Instructions Recorded Amoxicillin/Potassium Clav 1 each PO Q12HR 7 Days #14 tab 03/08/19 [Augmentin 875-125 Tablet] Allergies Allergy/AdvReac Type Severity Reaction Status Date / Time latex Allergy Swelling Verified 03/08/19 21:25 cats Allergy Itching Uncoded 03/08/19 21:25 Review of Systems ROS Statement: Those systems with pertinent positive or pertinent negative responses have been documented in the HPI. ROS Other: All systems not noted in ROS Statement are negative. Past Medical History Past Medical History: No Reported History Additional Past Medical History / Comment(s): ,kidney stones History of Any Multi-Drug Resistant Organisms: None Reported Past Surgical History: No Surgical Hx Reported Past Anesthesia/Blood Transfusion Reactions: Motion Sickness Past Psychological History: ADD/ADHD Smoking Status: Former smoker Past Alcohol Use History: Occasional Past Drug Use History: None Reported - Past Family History Mother Family Medical History: No Reported History General Exam Limitations: no limitations General appearance: alert, in no apparent distress Head exam: Present: atraumatic, normocephalic, normal inspection Eye exam: Present: normal appearance, PERRL, EOMI. Absent: scleral icterus, c onjunctival injection ENT exam: Present: normal exam, mucous membranes moist Neck exam: Present: normal inspection, full ROM. Absent: tenderness, men ingismus, lymphadenopathy Respiratory exam: Present: normal lung sounds bilaterally. Absent: respiratory distress, wheezes, rales, rhonchi, stridor Cardiovascular Exam: Present: regular rate, normal rhythm, normal heart sounds. Absent: systolic murmur, diastolic murmur, rubs, gallop, clicks Extremities exam: Present: tenderness (Tenderness to the volar aspect of the right wrist. Positive Tinel sign, positive Phalen's sign. No tenderness of the anatomic snuffbox. No tenderness in the right hand.), normal capillary refill (Capillary refill is 2 seconds, radial pulse 2+.), other (Sensation intact in all digits of the right hand. Strength 5 out of 5 in the right hand and all digits including the right hand.). Absent: normal inspection, full ROM (Patient is able to fully extend the right wrist but does have pain with flexion of the right wrist.), pedal edema, joint swelling, calf tenderness Course Vital Signs 06/26/19 17:46 Temperature 98.5 F Pulse Rate 90 Respiratory 18 Rate Blood Pressure 137/83 O2 Sat by Pulse 96 Oximetry Medical Decision Making - Medical Decision Making Physical exam does not reveal any tenderness of the anatomic snuffbox. There is volar wrist tenderness. No weakness in the right hand. Sensation intact. X- ray of the right wrist is negative. I do not suspect occult fracture given the mechanism. 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 Likely overuse injury. Concern for carpal tunnel syndrome given positive Mono and Tinel sign discussed cockup wrist splint. Discussed anti- inflammatory 3 to follow-up with primary care and orthopedics. He will return here if he has any worsening symptoms. Disposition Clinical Impression: Wrist pain, right Disposition: HOME SELF-CARE Condition: Good Instructions (If sedation given, give patient instructions): Wrist Injury (ED), Paresthesia (ED) Additional Instructions: Take motrin and tylenol for pain. Please use cockup splint as directed. Follow-up with primary care and orthopedics in 1-2 days. Return here if you have any worsening symptoms. Is patient prescribed a controlled substance at d/c from ED?: No Referrals: Jared Turner Jr, DO [Primary Care Provider] - 1-2 days Aleks Segundo MD [STAFF PHYSICIAN] - 1-2 days Time of Disposition: 18:51
== END 2019-06-26 19:12 | disposition home or self-care (01) ==
LOC: EC 17:44
DX: M25.531 Pain in right wrist (principal); R20.2 Paresthesia of skin; Z87.891 Personal history of nicotine dependence; Z91.040 Latex allergy status; Z91.048 Other nonmedicinal substance allergy status
CPT/HCPCS: 99283

== ENCOUNTER 2020-02-07 04:03 | Emergency (ER) | payer OTHER ==
[2020-02-07 04:18] VITALS: BP 121/86; PULSE 75; RESP 17; TEMP 98.6
--- NOTE | 2020-02-07 04:27 | ED ---
Lower Extremity Injury HPI - General Chief Complaint: Extremity Injury, Lower Stated Complaint: Right ankle injury Time Seen by Provider: 02/07/20 04:11 Source: patient, family Mode of arrival: ambulatory - History of Present Illness Initial Comments: Kalin is a 24-year-old male struck the ER today by his mother for evaluation of right ankle pain. He reports that sometime between 7 and 8 PM last night he been drinking alcohol when he began chasing his brother he tripped twisting his ankle. He did not his head he did not lose consciousness. Had some mild pain at the time. Mom attempted to ice the ankle but notes that since he's been sobering up the pains been worsening. He has been walking on it. Patient and mom both deny any previous history of injury to this - Related Data Previous Rx's Medication Instructions Recorded Amoxicillin/Potassium Clav 1 each PO Q12HR 7 Days #14 tab 03/08/19 [Augmentin 875-125 Tablet] Ibuprofen [Motrin] 600 mg PO Q6HR PRN #30 tab 02/07/20 Allergies Allergy/AdvReac Type Severity Reaction Status Date / Time latex Allergy Swelling Verified 03/08/19 21:25 cats Allergy Itching Uncoded 03/08/19 21:25 Review of Systems ROS Statement: Those systems with pertinent positive or pertinent negative responses have been documented in the HPI. ROS Other: All systems not noted in ROS Statement are negative. Past Medical History Past Medical History: No Reported History Additional Past Medical History / Comment(s): ,kidney stones History of Any Multi-Drug Resistant Organisms: None Reported Past Surgical History: No Surgical Hx Reported Past Anesthesia/Blood Transfusion Reactions: Motion Sickness Past Psychological History: ADD/ADHD Smoking Status: Current every day smoker Past Alcohol Use History: Occasional Past Drug Use History: None Reported - Past Family History Mother Family Medical History: No Reported History General Exam - General Exam Comments Initial Comments: Physical Exam GENERAL: Patient is well-developed and well-nourished. Patient is nontoxic and well-hydrated and is in no distress. HENT: Normocephalic, Atraumatic. EYES: PERRL, EOMI PULMONARY: Unlabored respirations. CARDIOVASCULAR: RRR Warm and well perfused extremities ABDOMEN: Non-distended SKIN: No rashes or bruising : Deferred NEUROLOGIC: Alert and oriented Normal speech Normal gait MUSCULOSKELETAL: Decreased ROM right ankle secondary to pain, moderate swelling, strong DP/PT pulses, cap refill <2 seconds PSYCHIATRIC: No SI/HI Course Vital Signs 02/07/20 04:12 Temperature 98.6 F Pulse Rate 75 Respiratory 17 Rate Blood Pressure 121/86 O2 Sat by Pulse 98 Oximetry Procedures - Orthopedic Splinting/Casting Injury #1 Lower Extremity Injury Location: ankle Lower Extremity Immobilizer: stirrup splint Medical Decision Making - Medical Decision Making The patient was seen and evaluated history was obtained from the patient X-ray was obtained revealed no obvious fracture Results were discussed with the patient patient was placed in a stirrup splint, patient remained neurovascularly intact after splinting Patient was advised that very small fractures can be missed on first x-ray so he has persistent pain he needs to follow-up for repeat imaging otherwise follow up with primary care to make sure sprain is healing. All questions pertaining care were answered return parameters were discussed patient was discharged home in stable condition. Disposition Clinical Impression: Ankle sprain Disposition: HOME SELF-CARE Condition: Stable Instructions (If sedation given, give patient instructions): Ankle Sprain (ED) Additional Instructions: As we discussed her x-rays today do not show any signs of a fracture however very small fractures can be missed early on so she have persistent pain he needed repeat imaging and possible follow-up with orthopedic surgery Return to the ER if he develop any worsening swelling pain that doesn't improve or any new or concerning symptoms Prescriptions: Ibuprofen [Motrin] 600 mg PO Q6HR PRN #30 tab PRN Reason: Pain Is patient prescribed a controlled substance at d/c from ED?: No Referrals: Jared Turner Jr, [Primary Care Provider] - 1-2 days
--- NOTE | 2020-02-07 04:33 | XR ---
EXAMINATION TYPE: XR ankle complete RT DATE OF EXAM: 02/07/2020 COMPARISON: NONE HISTORY: Fall. Pain. TECHNIQUE: 3 views FINDINGS: Ankle mortise is anatomic. I see no fracture. There is mild soft tissue swelling over the l ateral malleolus. Joint spaces are normal. IMPRESSION: Soft tissue swelling. No fracture seen.
== END 2020-02-07 05:10 | disposition home or self-care (01) ==
LOC: EC 04:03
DX: S93.401A Sprain of unspecified ligament of right ankle, initial encounter (principal); F17.200 Nicotine dependence, unspecified, uncomplicated; Z91.040 Latex allergy status; Z91.048 Other nonmedicinal substance allergy status; X50.0XXA Overexertion from strenuous movement or load, initial encounter; Y93.89 Activity, other specified
CPT/HCPCS: 29515; 99283

== ENCOUNTER 2021-04-20 16:35 | Emergency (ER) | payer OTHER ==
[2021-04-20 17:35] VITALS: TEMP 101.3
[2021-04-20] MEDS ORDERED: ACETAMINOPHEN TAB 325 MG TAB PO STA (17:53)
[2021-04-20] MEDS ORDERED: ONDANSETRON ODT 4 MG TAB PO STA (17:53)
[2021-04-20] MEDS ORDERED: ONDANSETRON 4 MG ODT STARTER PACK 2 TAB BTL PO STA (18:03)
--- NOTE | 2021-04-20 18:04 | ED ---
General Adult HPI - General Chief complaint: Shortness of Breath Stated complaint: Covid +, SOB Time Seen by Provider: 04/20/21 17:36 Source: patient, RN notes reviewed Mode of arrival: ambulatory Limitations: no limitations - History of Present Illness Initial comments: This is a well-appearing 25-year-old male, alert and oriented 4, presents to the emergency room with complaints of testing positive for Covid yesterday at [facility]. He states that he was given monoclonal antibody injection by EMS today. Patient states that he continues to have fever and nausea. He states he also feels short of breath. His oxygen saturation is 99%. He states he used to be a Pack-a-day smoker and he quit a month ago. No other medical history. -: days(s) (2) Location: chest Radiation: non-radiation Severity scale (1-10): 6 Consistency: constant Associated Symptoms: fever/chills, nausea/vomiting, shortness of breath Treatments Prior to Arrival: other (Monoclonal antibody injection with EMS and steroid injection) - Related Data Previous Rx's Medication Instructions Recorded Albuterol Inhaler [Ventolin Hfa 2 puff INHALATION RT-QID #8 gm 04/20/21 Inhaler] Allergies Allergy/AdvReac Type Severity Reaction Status Date / Time latex Allergy Swelling Verified 04/20/21 18:15 cats Allergy Itching Uncoded 04/20/21 18:15 Review of Systems ROS Statement: Those systems with pertinent positive or pertinent negative responses have been documented in the HPI. ROS Other: All systems not noted in ROS Statement are negative. Past Medical History Past Medical History: No Reported History Additional Past Medical History / Comment(s): ,kidney stones History of Any Multi-Drug Resistant Organisms: None Reported Past Surgical History: No Surgical Hx Reported Past Anesthesia/Blood Transfusion Reactions: Motion Sickness Past Psychological History: ADD/ADHD Smoking Status: Former smoker Past Alcohol Use History: Occasional Past Drug Use History: None Reported - Past Family History Mother Family Medical History: No Reported History General Exam Limitations: no limitations General appearance: alert, in no apparent distress Head exam: Present: atraumatic, normocephalic, normal inspection Eye exam: Present: normal appearance, EOMI ENT exam: Present: normal exam, normal oropharynx, mucous membranes moist Neck exam: Present: normal inspection, full ROM. Absent: tenderness, meningismus, lymphadenopathy Respiratory exam: Present: normal lung sounds bilaterally. Absent: respiratory distress, wheezes, rales, rhonchi, stridor, chest wall tenderness, accessory muscle use Cardiovascular Exam: Present: tachycardia, normal heart sounds. Absent: JVD GI/Abdominal exam: Present: soft, normal bowel sounds. Absent: distended, tenderness, guarding, rebound, rigid Extremities exam: Present: normal inspection, full ROM, normal capillary refill. Absent: tenderness, pedal edema, joint swelling, calf tenderness Neurological exam: Present: alert, oriented X3, normal gait Psychiatric exam: Present: normal affect, normal mood Skin exam: Present: warm, dry, intact, normal color. Absent: rash, cyanosis, diaphoretic Course Vital Signs 04/20/21 04/20/21 17:32 18:39 Temperature 101.3 F H Pulse Rate 115 H 74 Respiratory 24 20 Rate Blood Pressure 166/96 154/86 O2 Sat by Pulse 99 96 Oximetry Medical Decision Making - Medical Decision Making This is a well-appearing 25-year-old male that presents to the emergency room with complaints of 2 days of cough and fever. Patient states that yesterday he tested positive for Covid at [facility]. Today he went to the EMS office and received monoclonal antibody injections. He states he had 2 injections in each arm. He states he continues to have nausea and shortness of breath and fever. He was given Tylenol and Zofran in the emergency room. His oxygen saturation is 99% on room air. His lung sounds are clear to auscultation, no wheezes and no cough noted. His abdomen is soft and nontender. He was educated that this is a virus and needs to run its course. Tylenol and or Motrin as needed for fevers and body aches. I did provide him with Zofran to be taken as needed for nausea. I also prescribed an albuterol inhaler as needed. He has no medical history. He states that he has quit smoking a month ago. He is tolerating oral fluids in the emergency room and is well-appearing, vital signs are stable at discharge. Recommend follow up with his primary care doctor next week and self quarantine for 10 days from symptom onset and 24 hours without fever. Return to emergency room if any new or worsening symptoms. Disposition Clinical Impression: Viral respiratory illness Clinical Impression: (Ruled Out): Upper respiratory infection Disposition: HOME SELF-CARE Condition: Good Instructions (If sedation given, give patient instructions): Viral Syndrome (ED) Additional Instructions: Take Tylenol and/or Motrin as needed for body aches or fevers. Follow-up with your primary care doctor next week. Return to the emergency room with any new or worsening symptoms. Increase your fluid intake to prevent dehydration Prescriptions: Albuterol Inhaler [Ventolin Hfa Inhaler] 2 puff INHALATION RT-QID #8 gm Is patient prescribed a controlled substance at d/c from ED?: No Referrals: Jared Turner Jr, [Primary Care Provider] - 1-2 days Time of Disposition: 18:31
[2021-04-20 18:41] VITALS: BP 154/86; PULSE 74; RESP 20
== END 2021-04-20 18:49 | disposition home or self-care (01) ==
LOC: EC 16:35
DX: B34.9 Viral infection, unspecified (principal); F90.9 Attention-deficit hyperactivity disorder, unspecified type; Z91.040 Latex allergy status; Z87.442 Personal history of urinary calculi; Z87.891 Personal history of nicotine dependence
CPT/HCPCS: 99284; S0119

== ENCOUNTER 2022-04-02 05:45 | Emergency (ER) | payer OTHER ==
[2022-04-02 05:50] VITALS: RESP 18
[2022-04-02] MEDS ORDERED: SODIUM CHLORIDE 0.9% 2,000 ML IV STA (06:31)
[2022-04-02] MEDS ORDERED: ONDANSETRON 4 MG/2 ML VIAL IVP STA (06:31)
--- NOTE | 2022-04-02 06:35 | ED ---
General Adult HPI - General Chief complaint: Abdominal Pain Stated complaint: abd pain Time Seen by Provider: 04/02/22 06:17 Source: patient, RN notes reviewed Mode of arrival: ambulatory Limitations: no limitations - History of Present Illness Initial comments: This is a 26-year-old male presents emergency Department chief complaint abdominal pain, nausea vomiting. Patient states symptoms started last couple days. He initially felt that he had something from his kids has had very similar symptoms. Patient does complain of mild diffuse abdominal pain denies any localized abdominal pain. Patient's had no prior abdominal surgeries he denies any known drug ALLERGIES denies any current medications. Patient does admit that he has some mild cough and cold like symptoms denies any chest pain or shortness of breath no dysuria no hematuria. He states he's had pretty persistent diarrhea. Last emesis was just prior arrival. - Related Data Previous Rx's Medication Instructions Recorded Albuterol Inhaler [Ventolin Hfa 2 puff INHALATION RT-QID #8 gm 04/20/21 Inhaler] Allergies Allergy/AdvReac Type Severity Reaction Status Date / Time latex Allergy Swelling Verified 04/02/22 05:50 cats Allergy Itching Uncoded 04/02/22 05:50 Review of Systems ROS Statement: Those systems with pertinent positive or pertinent negative responses have been documented in the HPI. ROS Other: All systems not noted in ROS Statement are negative. Past Medical History Past Medical History: No Reported History Additional Past Medical History / Comment(s): ,kidney stones History of Any Multi-Drug Resistant Organisms: None Reported Past Surgical History: No Surgical Hx Reported Past Anesthesia/Blood Transfusion Reactions: Motion Sickness Past Psychological History: ADD/ADHD Smoking Status: Former smoker, Vaper Past Alcohol Use History: Occasional Past Drug Use History: None Reported - Past Family History Mother Family Medical History: No Reported History General Exam Limitations: no limitations General appearance: alert, in no apparent distress Head exam: Present: atraumatic, normocephalic, normal inspection Neck exam: Present: normal inspection, full ROM. Absent: tenderness, meningi smus, lymphadenopathy Respiratory exam: Present: normal lung sounds bilaterally. Absent: respiratory distress, wheezes, rales, rhonchi, stridor Cardiovascular Exam: Present: regular rate, normal rhythm, normal heart sounds. Absent: systolic murmur, diastolic murmur, rubs, gallop, clicks GI/Abdominal exam: Present: soft, tenderness (Mild diffuse), normal bowel sounds. Absent: distended, guarding, rebound, rigid Neurological exam: Present: alert Skin exam: Present: warm, dry, intact, normal color. Absent: rash Course Vital Signs 04/02/22 05:48 Temperature 97.9 F Pulse Rate 86 Respiratory 18 Rate Blood Pressure 93/68 O2 Sat by Pulse 100 Oximetry Medical Decision Making - Medical Decision Making 26-year-old male presented for abdominal pain nausea vomiting. Initial workup including labs, COVID-19 swab performed no acute findings. Patient was well hydrated, given antiemetics feels greatly improved. Patient discharged with Zofran return parameters were discussed. - Lab Data Result diagrams: 04/02/22 06:00 04/02/22 06:00 Lab Results 04/02/22 04/02/22 04/02/22 Range/Units 06:00 06:00 06:53 WBC 2.8 L (3.8-10.6) k/uL RBC 4.93 (4.30-5.90) m/uL Hgb 15.1 (13.0-17.5) gm/dL Hct 42.7 (39.0-53.0) % MCV 86.6 (80.0-100.0) fL MCH 30.7 (25.0-35.0) pg MCHC 35.4 (31.0-37.0) g/dL RDW 12.6 (11.5-15.5) % Plt Count 191 (150-450) k/uL MPV 8.5 Neutrophils % 50 % Lymphocytes % 37 % Monocytes % 8 % Eosinophils % 2 % Basophils % 1 % Neutrophils # 1.4 (1.3-7.7) k/uL Lymphocytes # 1.1 (1.0-4.8) k/uL Monocytes # 0.2 (0-1.0) k/uL Eosinophils # 0.1 (0-0.7) k/uL Basophils # 0.0 (0-0.2) k/uL Sodium 138 (137-145) mmol/L Potassium 3.8 (3.5-5.1) mmol/L Chloride 104 (98-107) mmol/L Carbon Dioxide 22 (22-30) mmol/L Anion Gap 12 mmol/L BUN 16 (9-20) mg/dL Creatinine 0.93 (0.66-1.25) mg/dL Est GFR (CKD-EPI)AfAm >90 (>60 ml/min/1.73 sqM) Est GFR (CKD-EPI)NonAf >90 (>60 ml/min/1.73 sqM) Glucose 92 (74-99) mg/dL Calcium 8.8 (8.4-10.2) mg/dL Total Bilirubin 0.9 (0.2-1.3) mg/dL AST 23 (17-59) U/L ALT 15 (4-49) U/L Alkaline Phosphatase 66 (38-126) U/L Total Protein 6.8 (6.3-8.2) g/dL Albumin 4.5 (3.5-5.0) g/dL Lipase 34 (23-300) U/L Coronavirus (PCR) Not Detected (Not Detectd) Disposition Clinical Impression: Gastroenteritis Disposition: HOME SELF-CARE Condition: Stable Instructions (If sedation given, give patient instructions): Gastroenteritis (ED) Additional Instructions: Please return to the Emergency Department if symptoms worsen or any other concerns. Is patient prescribed a controlled substance at d/c from ED?: No Referrals: None,Stated [Primary Care Provider] - 1-2 days Time of Disposition: 07:35
[2022-04-02 06:48] LABS: Basophils % (A) 1 %; Eosinophils # (A) 0.1 k/uL (0-0.7); Eosinophils % (A) 2 %; HCT 42.7 % (39.0-53.0); HGB 15.1 gm/dL (13.0-17.5); Lymphocytes # (A) 1.1 k/uL (1.0-4.8); Lymphocytes % (A) 37 %; MCH 30.7 pg (25.0-35.0); MCHC 35.4 g/dL (31.0-37.0); MCV 86.6 fL (80.0-100.0); Mean Platelet Volume 8.5; Monocytes # (A) 0.2 k/uL (0-1.0); Monocytes % (A) 8 %; Neutrophils # (A) 1.4 k/uL (1.3-7.7); Neutrophils % (A) 50 %; Platelet Count 191 k/uL (150-450); RBC 4.93 m/uL (4.30-5.90); RDW 12.6 % (11.5-15.5); WBC 2.8 k/uL (3.8-10.6)
[2022-04-02 07:03] LABS: ALT 15 U/L (4-49); AST 23 U/L (17-59); African American GFR (CKD) >90 (>60 ml/min/1.73 sqM); Albumin 4.5 g/dL (3.5-5.0); Alkaline Phosphatase 66 U/L (38-126); Anion Gap 12 mmol/L; Blood Urea Nitrogen 16 mg/dL (9-20); Calcium 8.8 mg/dL (8.4-10.2); Carbon Dioxide 22 mmol/L (22-30); Chloride 104 mmol/L (98-107); Glucose 92 mg/dL (74-99); Lipase 34 U/L (23-300); Non-African American GFR(CKD) >90 (>60 ml/min/1.73 sqM); Potassium 3.8 mmol/L (3.5-5.1); Sodium 138 mmol/L (137-145); Total Bilirubin 0.9 mg/dL (0.2-1.3); Total Protein 6.8 g/dL (6.3-8.2)
[2022-04-02 07:55] VITALS: BP 119/72; PULSE 56; TEMP 97.6
== END 2022-04-02 07:55 | disposition home or self-care (01) ==
LOC: EC 05:45
DX: K52.9 Noninfective gastroenteritis and colitis, unspecified (principal); F90.9 Attention-deficit hyperactivity disorder, unspecified type; F17.290 Nicotine dependence, other tobacco product, uncomplicated; Z91.040 Latex allergy status; Z20.822 Contact with and (suspected) exposure to COVID-19
CPT/HCPCS: 36415; 80053; 83690; 85025; 87635; 99284; 96374; 96361; J2405